=== PATIENT | female | born 1985 | race Caucasian/White ===

== ENCOUNTER 2019-04-18 13:01 | Observation (INO) | payer MEDICAID, OTHER, SELFPAY ==
[~2019-04-18] VITALS: Ht 167.6 cm; Wt 51.8 kg
[~2019-04-18 13:01] MED LIST: FOLI1TAB86 PO; LORA2TA PO; VITA100T2 PO; VITMTA PO; no meds
[2019-04-18] MEDS ORDERED: NS 1,000 ML IV ONE (14:45)
[2019-04-18] MEDS ORDERED: cloNIDine 0.1 MG TAB PO ONE (14:45)
[2019-04-18] MEDS ORDERED: ONDANSETRON 4MG/2ML VIAL (J2405) IV ONE (14:45)
[2019-04-18 14:47] LABS: BASO # 0.1 10^3/uL (0.0-0.2); BASO % 0.3 % (0.0-1.0); HEMATOCRIT 51.2 % (36.0-47.0); HEMOGLOBIN 17.4 g/dl (12.0-15.5); LYMPH # 2.6 10^3/uL (1.5-5.0); LYMPH % 14.2 % (24.0-44.0); MEAN CORPUSCULAR HEMOGLOBIN 30.1 pg (27.0-33.0); MEAN CORPUSCULAR VOLUME 88.4 fl (80.0-96.0); MONO # 0.8 10^3/uL (0.0-0.8); MONO % 4.3 % (0.0-5.0); NEUTROPHILS # 14.6 10^3/uL (1.5-8.5); NEUTROPHILS % 80.9 % (36.0-66.0); PLATELET COUNT, AUTOMATED 431 10^3/uL (150-450); RED BLOOD COUNT 5.79 10^6/uL (4.00-5.40)
[2019-04-18 15:14] LABS: BILIRUBIN,DIRECT 0.1 MG/DL (0.0-0.2); BILIRUBIN,TOTAL 0.5 MG/DL (0.2-1.0); CALCIUM LEVEL 11.8 MG/DL (8.5-10.1); CREATININE FOR GFR 2.22 MG/DL (0.55-1.30); GLOMERULAR FILTRATION RATE 27.4 (>60); POTASSIUM SERUM 4.5 MEQ/L (3.5-5.1); TOTAL PROTEIN 10.8 GM/DL (6.4-8.2)
[2019-04-18] MEDS ORDERED: LevoFLOXacin 500 MG TABLET PO ONE (17:00)
[2019-04-18] MEDS ORDERED: LORazepam 2 MG/ML VIAL (J2060) IV PRN (17:00)
--- NOTE | 2019-04-18 17:06 | HPEPDOC ---
General Date of Admission 04/18/19 Date of Service: Apr 18, 2019 Attending Physician: LATONYA JUAN MD Chief Complaint The patient is a 33-year-old female admitted with a reason for visit of Withdrawl. Source: Patient Exam Limitations: No limitations Timing/Duration: Day(s) Severity: Moderate (3 days) Associated Symptoms: Nausea, Vomiting History of Present Illness 33 years old white female with past medical history of no medical problems except dental problems. History of heroin IV drug abuse. Last time she shot heroin in her arm on Wednesday and tried to go through withdrawal on her own. Patient felt better yesterday but she still has persistent nausea, vomiting and unable to keep anything down. His decided to come to ED for further workup. Patient being admitted to medical floor with persistent nausea, vomiting, and acute renal failure secondary to dehydration Home Medications No Active Prescriptions or Reported Meds Allergies Coded Allergies: No Known Allergies (Verified Allergy, Unknown, 04/18/19) Past Medical History Medical History Dental problems or issues Surgical History None Family History Significant Family History: No pertinent family hx Social History * Smoker: current smoker Alcohol: Denies Drugs: heroin A-FIB/CHADSVASC A-FIB History Current/History of A-Fib/PAF?: No Review of Systems Constitutional: Denies: Chills, Fever, Malaise, Night Sweats, Weakness, Fatigue, Weight Loss, Lethargy, Other Eyes: Denies: Pain, Vision change, Conjunctivae inflammation, Eyelid inflammation, Redness, Other ENT: Reports: Sinus Congestion, Other Symptoms Skin: Denies: Rash, Lesions, Jaundice, Bruising, Itching, Dry, Breakdown, Nail Changes, Other Cardiovascular: Denies: Chest Pain, Palpitations, Orthopnea, Paroxysmal Noc. Dyspnea, Edema, Lt Headedness, Other Symptoms Gastrointestinal: Reports: Nausea, Vomiting; Denies: Abdominal Pain, Diarrhea, Constipation, Melena, Hematochezia, Other Symptoms Genitourinary: Denies: Dysuria, Frequency, Incontinence, Hematuria, Retention, Other Symptoms Hematologic: Denies: Bruising, Bleeding Excessively, Petecchia, Purpura, Enlarged Lymph Nodes, Other Hematologic Endocrine: Denies: Polydipsia, Polyphagia, Polyuria, Heat Intolerance, Cold Intolerance, Other Endocrine Sx Musculoskeletal: Denies: Neck Pain, Back Pain, Shoulder Pain, Arm Pain, Hand Pain, Leg Pain, Foot Pain, Joint Pain, Muscle Pain, Spasms, Other Symptoms Neurological: Denies: Weakness, Numbness, Incoordination, Change in speech, Confusion, Seizures, Other Symptoms Psych: Denies: Mood Normal, Anxiety, Depression, Memory Issues, Thoughts of Self Harm, Anger, Thoughts of Harming Other, Other Psych Physical Examination General Exam: Positive: Alert, Cooperative Eye Exam: Positive: PERRLA, Conjunctiva & lids normal ENT Exam: Positive: Atraumatic, Mucous membr. moist/pink Neck Exam: Positive: Supple Chest Exam: Positive: Clear to auscultation, Normal air movement Heart Exam: Positive: Rate Normal, Normal S1, Normal S2 Abdomen Exam: Positive: Normal bowel sounds Extremity Exam: Positive: Normal pulses Skin Exam: Positive: Nl turgor and temperature Neuro Exam: Positive: Strength at 5/5 X4 ext, Sensation Intact Psych Exam: Positive: Mental status NL, Memory Intact, Oriented x 3 Vital Signs Vital Signs Date Time Temp Pulse Resp B/P (MAP) Pulse Ox O2 Delivery O2 Flow Rate FiO2 04/18/19 15:16 72 100 04/18/19 15:00 131/96 (108) 04/18/19 13:01 98.0 20 Room Air Laboratory Data Labs 24H Laboratory Tests 2 04/18/19 14:28: Immature Granulocyte % (Auto) 0.3, White Blood Count 18.0H, Red Blood Count 5.79H, Hemoglobin 17.4H, Hematocrit 51.2H, Mean Corpuscular Volume 88.4, Mean Corpuscular Hemoglobin 30.1, Mean Corpuscular Hemoglobin Concent 34.0, Red Cell Distribution Width 13.3, Platelet Count 431, Neutrophils (%) (Auto) 80.9H, Lymphocytes (%) (Auto) 14.2L, Monocytes (%) (Auto) 4.3, Eosinophils (%) (Auto) 0.0, Basophils (%) (Auto) 0.3, Neutrophils # (Auto) 14.6H, Lymphocytes # (Auto) 2.6, Monocytes # (Auto) 0.8, Eosinophils # (Auto) 0.0, Basophils # (Auto) 0.1, Nucleated Red Blood Cells % (auto) 0.0, Anion Gap 14, Glomerular Filtration Rate 27.4L, Calcium Level 11.8H, Aspartate Amino Transf (AST/SGOT) 36, Alanine Aminotransferase (ALT/SGPT) 52, Alkaline Phosphatase 116, Total Bilirubin 0.5, Direct Bilirubin 0.1, Total Protein 10.8H, Albumin 5.0, Albumin/Globulin Ratio 0.86L CBC/BMP Laboratory Tests 04/18/19 14:28 Red Blood Count 5.79 H, Mean Corpuscular Volume 88.4, Mean Corpuscular Hemoglobin 30.1, Mean Corpuscular Hemoglobin Concent 34.0, Red Cell Distribution Width 13.3, Neutrophils (%) (Auto) 80.9 H, Lymphocytes (%) (Auto) 14.2 L, Monocytes (%) (Auto) 4.3, Eosinophils (%) (Auto) 0.0, Basophils (%) (Auto) 0.3, Neutrophils # (Auto) 14.6 H, Lymphocytes # (Auto) 2.6, Monocytes # (Auto) 0.8, Eosinophils # (Auto) 0.0, Basophils # (Auto) 0.1 Problems (1) Dehydration Status: Acute Problem Text: 33 years old white female with no past medical history is a history of heroin abuse. She is been sober for a year and have been recently 2 months ago she restarted again. Her last IV injection of heroin was Wednesday about 3 days ago. Nightly through the withdrawal at home and she felt better yesterday but she is still complaining of persistent nausea, vomiting, unable to keep anything down. She does have some nasal congestion but no tremors or anxiety at this point Discussed with Dr. from psychiatry. Just symptomatic treatment recommended IV fluid normal saline at 100 mL per hour Ativan 1 mg by mouth every exam or when necessary for anxiety Zofran 4 mg IV every 4 hours when necessary for nausea, vomiting Oral hydration and oral intake as tolerated A.m. laboratory work Bilateral SCDs for DVT prophylaxis Activity as tolerated (2) Acute renal failure Status: Acute Problem Text: Secondary to dehydration and poor oral intake Repeat labs in a.m. Continue IV fluids normal saline at 100 mL per hour (3) Nausea & vomiting Status: Acute Problem Text: Secondary to opiate withdrawal Zofran 4 mg IV every 4-6 hour when necessary for nausea, vomiting Symptomatic care (4) Heroin withdrawal Status: Acute Problem Text: As above Plan / VTE VTE Prophylaxis Ordered?: Yes LATONYA JUAN MD Apr 18, 2019 17:06
[2019-04-18] MEDS: NS 1,000 ML IV SCH (17:08)
[2019-04-18] MEDS ORDERED: cefTRIAXone SOD 1 GM in D5W MINI-BAG PLUS 50 ML IV ONE (17:15)
--- NOTE | 2019-04-18 17:19 | REP ---
Portable chest, single AP view, the patient upright, 05:02 p.m.: There are no comparisons. The lung rubio are clear. The cardiac size is normal. The laya, mediastinum, and skeletal structures are unremarkable. Impression: Negative portable chest. Electronically Signed by Oswald No MD 04/18/2019 05:11 P
[2019-04-18 18:18] VITALS: BP 106/78
[2019-04-18 22:00] VITALS: BP 121/87
[2019-04-18] MEDS: ONDANSETRON 4MG/2ML VIAL (J2405) IV PRN (23:22)
[2019-04-19] MEDS ORDERED: LORazepam 2 MG/ML VIAL (J2060) IV ONE (00:45)
[2019-04-19 06:00] VITALS: BP 122/88
[2019-04-19] MEDS: NS 1,000 ML IV SCH ×3 (06:11→20:43)
[2019-04-19 06:27] LABS: HEMATOCRIT 40.8 % (36.0-47.0); MEAN CORPUSCULAR HEMOGLOBIN 30.2 pg (27.0-33.0); MEAN CORPUSCULAR HGB CONC 34.1 g/dl (32.0-36.5); MEAN CORPUSCULAR VOLUME 88.7 fl (80.0-96.0)
[2019-04-19 06:32] LABS: HEMOGLOBIN 13.9 g/dl (12.0-15.5); PLATELET COUNT, AUTOMATED 311 10^3/uL (150-450)
[2019-04-19 06:48] LABS: ALBUMIN 3.6 GM/DL (3.2-5.2); ALT/SGPT 49 U/L (12-78); BILIRUBIN,TOTAL 0.7 MG/DL (0.2-1.0); BLOOD UREA NITROGEN 28 MG/DL (7-18); CALCIUM LEVEL 9.1 MG/DL (8.5-10.1); CARBON DIOXIDE LEVEL 26 MEQ/L (21-32); CHLORIDE LEVEL 105 MEQ/L (98-107); GLOMERULAR FILTRATION RATE > 60.0 (>60); GLUCOSE, FASTING 100 MG/DL (70-100); POTASSIUM SERUM 3.6 MEQ/L (3.5-5.1); SODIUM LEVEL 139 MEQ/L (136-145); TOTAL PROTEIN 8.1 GM/DL (6.4-8.2)
[2019-04-19] MEDS ORDERED: LORazepam 2 MG/ML VIAL (J2060) IV PRN (07:45)
--- NOTE | 2019-04-19 11:12 | IPNPDOC ---
Subjective Date Seen The patient was seen on 04/19/19. Subjective Chief Complaint/HPI Patient is sleeping very comfortably, easily arousable with tactile stimuli, but goes back to sleep, no chills, shivering nasal congestion tremors General: Denies: ROS Unobtainable, Chills, Night Sweats, Fatigue, Malaise, N ormal Appetite, Other Symptoms Constitutional: Denies: Chills, Fever, Malaise, Night Sweats, Weakness, Fatigue, Weight Loss, Lethargy, Other Pulmonary: Denies: Dyspnea, Cough, Pleuritic Chest Pain, Other Symptoms Cardiovascular: Denies: Chest Pain, Palpitations, Orthopnea, Paroxysmal Noc. Dyspnea, Edema, Lt Headedness, Other Symptoms Gastrointestinal: Denies: Nausea, Vomiting, Abdominal Pain, Diarrhea, Consti pation, Melena, Hematochezia, Other Symptoms Genitourinary: Denies: Dysuria, Frequency, Incontinence, Hematuria, Retention, Other Symptoms Musculoskeletal: Denies: Neck Pain, Back Pain, Shoulder Pain, Arm Pain, Hand Pain, Leg Pain, Foot Pain, Joint Pain, Muscle Pain, Spasms, Other Symptoms Neurological: Denies: Weakness, Numbness, Incoordination, Change in speech, Confusion, Seizures, Other Symptoms Objective Physical Examination Neck Exam: Positive: Supple Chest Exam: Positive: Clear to auscultation, Normal air movement Heart Exam: Positive: Rate Normal, Normal S1, Normal S2 Abdomen Exam: Positive: Normal bowel sounds Extremity Exam: Positive: Normal pulses Skin Exam: Positive: Nl turgor and temperature Assessment /Plan Problems (1) Heroin withdrawal Status: Acute Problem Text: Patient seems very comfortable with anxiolytics and current management Once the patient is awake from her sleep. She'll be provided with regular diet If she tolerates diet, she possibly will be discharged home today Her opioid withdrawal symptoms have subsided clearly, as per clinical exam Patient did get a referral from [facility] regarding follow-up as an outpatient (2) Acute renal failure Status: Acute Problem Text: Acute kidney injury has resolved with IV fluids Her BUN is 28, creatinine is 1.0 Continue all current meds (3) Protein calorie malnutrition Status: Chronic Problem Text: Most likely secondary to IV drug abuse and poor oral intake Dietary counseling done Will get a dietary consult as well Plan/VTE VTE Prophylaxis Ordered?: Yes VS, I&O, 24H, Fishbone Vital Signs/I&O Vital Signs Date Time Temp Pulse Resp B/P (MAP) Pulse Ox O2 Delivery O2 Flow Rate FiO2 04/19/19 06:00 98.7 87 16 122/88 (99) 97 04/18/19 13:01 Room Air I&O- Last 24 Hours up to 6 AM 04/19/19 06:00 Intake Total 2420 ml Output Total 1000 ml Balance 1420 ml Laboratory Data 24H LABS Laboratory Tests 2 04/18/19 14:28: Immature Granulocyte % (Auto) 0.3, White Blood Count 18.0H, Red Blood Count 5.79H, Hemoglobin 17.4H, Hematocrit 51.2H, Mean Corpuscular Volume 88.4, Mean Corpuscular Hemoglobin 30.1, Mean Corpuscular Hemoglobin Concent 34.0, Red Cell Distribution Width 13.3, Platelet Count 431, Neutrophils (%) (Auto) 80.9H, Lymphocytes (%) (Auto) 14.2L, Monocytes (%) (Auto) 4.3, Eosinophils (%) (Auto) 0.0, Basophils (%) (Auto) 0.3, Neutrophils # (Auto) 14.6H, Lymphocytes # (Auto) 2.6, Monocytes # (Auto) 0.8, Eosinophils # (Auto) 0.0, Basophils # (Auto) 0.1, Nucleated Red Blood Cells % (auto) 0.0, Anion Gap 14, Glomerular Filtration Rate 27.4L, Calcium Level 11.8H, Aspartate Amino Transf (AST/SGOT) 36, Alanine Aminotransferase (ALT/SGPT) 52, Alkaline Phosphatase 116, Total Bilirubin 0.5, Direct Bilirubin 0.1, Total Protein 10.8H, Albumin 5.0, Albumin/Globulin Ratio 0.86L 04/19/19 05:42: Nucleated Red Blood Cells % (auto) 0.0, Anion Gap 8, Glomerular Filtration Rate > 60.0, Calcium Level 9.1#, Aspartate Amino Transf (AST/SGOT) 41H, Alanine Aminotransferase (ALT/SGPT) 49, Alkaline Phosphatase 78, Total Bilirubin 0.7, Total Protein 8.1#, Albumin 3.6#, Albumin/Globulin Ratio 0.80L, Blood Urea Nitrogen 28H, Creatinine 1.00#, Sodium Level 139, Potassium Level 3.6, Chloride Level 105, Carbon Dioxide Level 26, Magnesium Level 2.0 CBC/BMP Laboratory Tests 04/18/19 14:28 Red Blood Count 5.79 H, Mean Corpuscular Volume 88.4, Mean Corpuscular Hemoglobin 30.1, Mean Corpuscular Hemoglobin Concent 34.0, Red Cell Distribution Width 13.3, Neutrophils (%) (Auto) 80.9 H, Lymphocytes (%) (Auto) 14.2 L, Monocytes (%) (Auto) 4.3, Eosinophils (%) (Auto) 0.0, Basophils (%) (Auto) 0.3, Neutrophils # (Auto) 14.6 H, Lymphocytes # (Auto) 2.6, Monocytes # (Auto) 0.8, Eosinophils # (Auto) 0.0, Basophils # (Auto) 0.1 04/19/19 05:42 Red Blood Count 4.60, Mean Corpuscular Volume 88.7, Mean Corpuscular Hemoglobin 30.2, Mean Corpuscular Hemoglobin Concent 34.1, Red Cell Distribution Width 13.0, Calcium Level 9.1 #, Aspartate Amino Transf (AST/SGOT) 41 H, Alanine Aminotransferase (ALT/SGPT) 49, Alkaline Phosphatase 78, Total Bilirubin 0.7, Total Protein 8.1 #, Albumin 3.6 # LATONYA JUAN MD Apr 19, 2019 11:12
[2019-04-19] MEDS: LORazepam 1 MG TAB PO PRN ×3 (13:25→22:09)
[2019-04-19 14:00] VITALS: BP 124/68
[2019-04-19 15:48] LABS: APPEARANCE, URINE CLEAR (CLEAR); BACTERIA, URINE AUTO NEGATIVE (NEGATIVE); BILIRUBIN, URINE AUTO NEGATIVE (NEGATIVE); BLOOD, URINE BLOOD NEGATIVE (NEGATIVE); COLOR, URINE YELLOW (YELLOW); GLUCOSE, URINE (UA) AUTO NEGATIVE (NEGATIVE); KETONE, URINE AUTO NEGATIVE (NEGATIVE); LEUKOCYTE ESTERASE, URINE AUTO TRACE (NEGATIVE); NITRITE, URINE AUTO NEGATIVE (NEGATIVE); PROTEIN, URINE AUTO NEGATIVE (NEGATIVE); RBC, URINE AUTO 1 /HPF (0-3); SPECIFIC GRAVITY URINE AUTO 1.011 (1.002-1.035); SQUAMOUS EPITHELIAL CELL UR AU 1 /HPF (0-6); UROBILINOGEN, URINE AUTO 0.2 mg/dL (0.0-2.0); WBC, URINE AUTO 2 /HPF (0-3)
[2019-04-19] MEDS: ONDANSETRON 4MG/2ML VIAL (J2405) IV PRN ×2 (16:14→20:40)
[2019-04-19] MEDS ORDERED: cefTRIAXone SOD 1 GM in D5W MINI-BAG PLUS 50 ML IV SCH (18:00)
[2019-04-19 22:00] VITALS: BP 124/79
[2019-04-20] MEDS: ONDANSETRON 4MG/2ML VIAL (J2405) IV PRN ×2 (01:02→06:00)
[2019-04-20] MEDS: LORazepam 1 MG TAB PO PRN ×2 (02:52→08:37)
[2019-04-20 06:00] VITALS: BP 126/88
[2019-04-20] MEDS: NS 1,000 ML IV SCH (06:42)
--- NOTE | 2019-04-20 12:11 | DS.PDOC ---
Discharge Summary General Date of Admission Apr 18, 2019 at 13:02 Date of Discharge 04/20/19 Attending Physician: LATONYA JUAN MD Discharge Summary PROCEDURES PERFORMED DURING STAY: None. ADMITTING DIAGNOSES: 1. Intractable nausea, vomiting Opiate withdrawal. UTI, history of IV drug abuse, DOROTEO. DISCHARGE DIAGNOSES: 1. [Intractable nausea, vomiting secondary to Opiate withdrawal, UTI, history of IV drug abuse, protein malnutrition secondary to drug abuse, DOROTEO COMPLICATIONS/CHIEF COMPLAINT: Heroin Withdrawal Nausea Vomiting. HISTORY OF PRESENT ILLNESS: 33 years old white female with past medical history of no medical problems except dental problems. History of heroin IV drug abuse. Last time she shot heroin in her arm on Wednesday and tried to go through withdrawal on her own. Patient felt better yesterday but she still has persistent nausea, vomiting and unable to keep anything down. His decided to come to ED for further workup. Patient being admitted to medical floor with persistent nausea, vomiting, and acute renal failure secondary to dehydration. HOSPITAL COURSE: Patient was admitted with the intractable nausea, vomiting secondary to opiate withdrawal. Patient seems very comfortable with anxiolytics and current management . She was provided with IV fluids and diet was progressed , She tolerated her diet. Today she possibly will be discharged home today Patient's opiate withdrawal symptoms have resolved She will follow up with [facility] regarding her outpatient follow-up for drug addiction Acute kidney injury has resolved with IV fluids Her BUN is 28, creatinine is 1.0 Continue all current meds Protein malnutrition Most likely secondary to IV drug abuse and poor oral intake Dietary counseling done Will get a dietary consult as wel. DISCHARGE MEDICATIONS: Please see below. ALLERGIES: Please see below. PHYSICAL EXAMINATION ON DISCHARGE: VITAL SIGNS: Please see below. GENERAL: Within normal limits HEENT: PERRLA NECK: Supple CARDIOVASCULAR EXAMINATION: S1, S2, regular RESPIRATORY EXAMINATION: Clear to A&P ABDOMINAL EXAMINATION: Benign EXTREMITIES: No clubbing, cyanosis, edema SKIN: Normal NEUROLOGICAL EXAMINATION: . No focal motor sensory deficit PSYCHIATRIC EXAMINATION: Normal LABORATORY DATA: Please see below. IMAGING: None PROGNOSIS: Good ACTIVITY: As tolerated. DIET: As tolerated DISCHARGE PLAN: MS home DISPOSITION: 01 Home, Self-Care. DISCHARGE INSTRUCTIONS: 1. Patient will follow with up with behavioral health provider for further care as an outpatient. ITEMS TO FOLLOWUP ON ON OUTPATIENT: 1. Follow with Health provider as outpatient. DISCHARGE CONDITION: Stable. TIME SPENT ON DISCHARGE: 28 minutes. Vital Signs/I&Os Vital Signs Date Time Temp Pulse Resp B/P (MAP) Pulse Ox O2 Delivery O2 Flow Rate FiO2 04/20/19 06:00 97.9 71 17 126/88 (101) 98 04/18/19 13:01 Room Air I&O- Last 24 Hours up to 6 AM 04/20/19 06:00 Intake Total 3566 ml Output Total 1100 ml Balance 2466 ml Laboratory Data Labs 24H Laboratory Tests 2 04/19/19 15:30: Urine Appearance CLEAR, Urine Color YELLOW, Urine pH 7.0, Urine Specific [place] 1.011, Urine Protein NEGATIVE, Urine Glucose (UA) NEGATIVE, Urine Ketones NEGATIVE, Urine Urobilinogen 0.2, Urine Bilirubin NEGATIVE, Urine Leukocyte Esterase TRACEH, Urine Blood NEGATIVE, Urine Nitrite NEGATIVE, Urine WBC (Auto) 2, Urine RBC (Auto) 1, Urine Hyaline Casts (Auto) 0, Urine Bacteria (Auto) NEGATIVE, Urine Squamous Epithelial Cells 1, Urine Sperm (Auto) Discharge Medications No Active Prescriptions or Reported Meds Allergies Coded Allergies: No Known Allergies (Verified Allergy, Unknown, 04/18/19) LATONYA JUAN MD Apr 20, 2019 12:11
== END 2019-04-20 11:06 | disposition home or self-care (01) ==
LOC: M ED 13:01 → M ED INP 13:02 → M MSPAV 18:18
PROVIDERS: ADMIT Internal Medicine; ATTEND Internal Medicine
DX: F11.93 Opioid use, unspecified with withdrawal (principal); R11.2 Nausea with vomiting, unspecified; N17.9 Acute kidney failure, unspecified; E86.0 Dehydration; F17.210 Nicotine dependence, cigarettes, uncomplicated
CPT/HCPCS: 36415; 71045; 80048; 80053; 80076; 81001; 83735; 85025; 85027; 96361; 96374; 96375; 96376; 99284; J0696; J2060; J2405

== ENCOUNTER → 2019-04-24 | Outpatient (CLI) | payer MEDICAID | LOC: M OUTALCOH 12:48 | PROVIDERS: ATTEND Psychiatry & Neurology Psychiatry | DX: F11.20 Opioid dependence, uncomplicated (principal) ==

== ENCOUNTER 2019-06-12 08:45 | Outpatient (RCR) | payer MEDICAID | END 2019-06-17 | LOC: M OUTALCOH 08:45 | PROVIDERS: ATTEND Psychiatry & Neurology Psychiatry | DX: F11.20 Opioid dependence, uncomplicated (principal); F10.20 Alcohol dependence, uncomplicated; F14.20 Cocaine dependence, uncomplicated; F15.20 Other stimulant dependence, uncomplicated ==

== ENCOUNTER 2019-07-03 09:43 | Inpatient (IN) | payer MEDICAID, OTHER ==
[~2019-07-03] VITALS: Ht 167.6 cm; Wt 53.8 kg
[2019-07-03] MEDS ORDERED: SUBO8MIS SL (10:03)
[2019-07-03 10:30] LABS: HEMOGLOBIN 14.5 g/dl (12.0-15.5); MEAN CORPUSCULAR HEMOGLOBIN 29.5 pg (27.0-33.0); MEAN CORPUSCULAR VOLUME 89.4 fl (80.0-96.0); PLATELET COUNT, AUTOMATED 226 10^3/uL (150-450); RED BLOOD COUNT 4.92 10^6/uL (4.00-5.40)
[2019-07-03 10:49] LABS: AMPHETAMINES LEVEL URINE NEGATIVE (NEGATIVE); BARBITURATES URINE NEGATIVE (NEGATIVE); BENZODIAZEPINES URINE NEGATIVE (NEGATIVE); CANNABINOIDS URINE NEGATIVE (NEGATIVE); COCAINE METABOLITE URINE NEGATIVE (NEGATIVE); METHADONE URINE NEGATIVE (NEGATIVE); OPIATES URINE NEGATIVE (NEGATIVE); PHENCYCLIDINE URINE NEGATIVE (NEGATIVE)
[2019-07-03 10:59] LABS: HCG, SERUM QUALITATIVE NEGATIVE (NEGATIVE)
[2019-07-03 11:21] LABS: ACETAMINOPHEN LEVEL < 2.0 UG/ML (10.0-30.0); ALBUMIN 4.6 GM/DL (3.2-5.2); ALT/SGPT 46 U/L (12-78); BILIRUBIN,DIRECT 0.1 MG/DL (0.0-0.2); BILIRUBIN,TOTAL 0.7 MG/DL (0.2-1.0); BLOOD UREA NITROGEN 13 MG/DL (7-18); CALCIUM LEVEL 9.7 MG/DL (8.5-10.1); CARBON DIOXIDE LEVEL 23 MEQ/L (21-32); CHLORIDE LEVEL 108 MEQ/L (98-107); CREATININE FOR GFR 0.76 MG/DL (0.55-1.30); ETHYL ALCOHOL (ETHANOL) < 0.003 % (0.000-0.010); GLOMERULAR FILTRATION RATE > 60.0 (>60); GLUCOSE, FASTING 94 MG/DL (70-100); POTASSIUM SERUM 4.2 MEQ/L (3.5-5.1); SALICYLATE LEVEL 4.8 MG/DL (5.0-30.0); SODIUM LEVEL 140 MEQ/L (136-145); TOTAL PROTEIN 8.7 GM/DL (6.4-8.2)
--- NOTE | 2019-07-03 13:11 | REP ---
Head CT without contrast: History: Altered mental status Comparison study: No comparison study. CT findings: Bone window settings demonstrate an intact bony calvarium. There is no evidence of skull fracture or incidental bony calvarial lesion. The visualized paranasal sinuses appear clear. No intraorbital abnormality is seen. On soft tissue window setting images; the lateral, third, and fourth ventricles are normal in size and position. Haywood-white differentiation pattern is normal above and below the tentorium. There are is no evidence of intracranial hemorrhage. No mass, edema, infarction, or midline shift is seen. No extra-axial fluid collection is appreciated. Impression: Negative noncontrast head CT. Electronically Signed by Gage Jones MD 07/03/2019 01:04 P
[2019-07-03] MEDS ORDERED: OLANZapine ORAL DISINTEGRATING TAB 5MG PO PRN (14:30)
[2019-07-03 23:01] VITALS: BP 130/85
[2019-07-03] MEDS: ACETAMINOPHEN TAB 650MG DOSE (2X325MG) PO PRN (23:29)
[2019-07-03] MEDS ORDERED: MAALOX 30 ML SUSP *UDC PO PRN (23:30)
[2019-07-03] MEDS ORDERED: traZODone 50 MG TAB PO PRN (23:30)
[2019-07-03] MEDS ORDERED: MOM 30ML SUSPENSION UDC PO PRN (23:30)
[2019-07-04 06:32] VITALS: BP 112/62
--- NOTE | 2019-07-04 11:10 | MHHPEPDOC ---
[facility] History & Physical History and Physical DATE OF ADMISSION: Jul 03, 2019 at 14:29 New Patient Khang Hadley MRN: N/A Date of : N/A Date of Service: 07/04/2019 Chief Complaint "I don't know what happened." History of Present Illness The patient a 33-year-old woman who has a significant history of addiction, treated by myself in the outpatient addiction treatment system present psychotic after reportedly during substances, she has recently had a relapse on methamphetamine and had presented fairly psychotic, unable to demonstrate any reason or ability to understand her current situation. When I attempted to meet with the patient, she was so heavily sedated, tired and unable to make much sense regarding the situation, only asking for her buprenorphine. Other than that, she was unable to relate any effective information. The psychosocial below is extracted from previous assessments and update as appropriate. Review Of Systems Unable to provide information due to her sedation, lethargy and psychosis. Past Psychiatric History Denies a history of suicide attempts. Allergies Please see below. Family Psychiatric History Per records. Social History The patient is a woman who self identifies as lesbian, currently homeless. No significant legal problems noted, has no current income, has a GED, has been arrested in the past for criminal contempt, reportedly grew up with parents , previously has denied any abuse. Substance Abuse History Has a history of opioid use on buprenorphine. Recent relapse on methamphetamine, history of cannabis use and polysubstance issues. Medical History Per chart. Mental Status Examination General: Poor hygiene Speech: Circumstantial Thought processes: Tangential MSK: Smooth and coordinated gait, no signs of tremors or involuntary orofacial movements Thought content: Bizarre Abstract reasoning, and computation: Impaired Description of associations: Impaired Description of abnormal or psychotic thoughts: Appears to be heavily sedated, unclear if any abnormal thought process. Judgment: Impaired Insight: Impaired Orientation: Alert and orientated 3 Cognition: Grossly normal Recent and remote memory: Intact Attention span and concentration: Intact Fund of knowledge: Adequate Mood: "fine" Affect: Flat with little range Diagnoses Unspecified psychotic disorder. Opioid use disorder, severe. Methamphetamine use disorder, severe. Tobacco use disorder, severe. Assessment and Plan Unspecified psychotic disorder: Suspect substance use, will observe to determine if underlying psychotic disorder versus substance. U-tox negative; however, pat eleanor has history of synthetic use. Opioid use disorder: Will restart buprenorphine for now. Tobacco use disorder: Offer nicotine patch. Disposition The patient will need admission likely lasting longer than 2 minutes in order to treat her psychosis. Problem List 1. Altered thoughts. 2. Substance use. Initial Treatment Plan 1. Patient was admitted on a 9.39 legal status. 2. Complete history was obtained. 3. With patients permission, family will be contacted and database will be expanded. 4. Patients medication regimen will be reviewed and changed accordingly. 5. Patient will be provided with protected environment. 6. Patient will be treated with individual, group, and milieu therapies. 7. Patient will receive supportive psych-education. 8. Discharge planning will commence immediately. 9. Outpatient follow-up treatment will be strongly recommended. 10. The initial treatment plan will focus initially on: Estimated Length Of Stay 3 days. Time Spent 70 minutes. Wednesday Vital Signs Vital Signs Date Time Temp Pulse Resp B/P (MAP) Pulse Ox O2 Delivery O2 Flow Rate FiO2 07/04/19 10:28 Room Air 07/04/19 06:32 98.1 69 16 112/62 (79) 07/03/19 23:01 98 Medications Scheduled Buprenorphine HCl/Naloxone HCl (Suboxone 8 mg-2 mg Sl Film) 1 Each Film, 1 STRIP SL DAILY, (Reported) Allergies Coded Allergies: No Known Allergies (Verified Allergy, Unknown, 04/18/19) MARIAMA SUMMERS DO Jul 04, 2019 11:10
--- NOTE | 2019-07-04 11:16 | HPEPDOC ---
General Date of Admission Jul 03, 2019 at 14:29 Date of Service: Jul 04, 2019 Attending Physician: CHANA SEVILLA MD Chief Complaint The patient is a 33-year-old female admitted with a reason for visit of Psychosis. Source: Patient, RN/MD, EMS notes reviewed Exam Limitations: No limitations Associated Symptoms: Denies Symptoms History of Present Illness Ms. Hadley is a 33 year old female admitted to the [facility] with a diagnosis of Psychosis. Pt is being assessed by the hospitalist group for any medical comorbidities she may have. She is seen in the schuler exam room today with nursing escort. When asked, pt stated she doesn't know why she is here, she is tired. Pt denied any current medical issues except she has 'pain all over' and has been experiencing these Sx for ~ 1 month. Pain is described as aching in all the joints; no precipitating trauma or event. Tylenol or Ibuprofen OTC resolve the pain. She has recently established PCP with [facility]. Home Medications Scheduled Buprenorphine HCl/Naloxone HCl (Suboxone 8 mg-2 mg Sl Film) 1 Each Film, 1 STRIP SL DAILY, (Reported) Allergies Coded Allergies: No Known Allergies (Verified Allergy, Unknown, 04/18/19) Past Medical History Medical History ARF Heroin withdrawal Surgical History Denied Family History Significant Family History: Diabetes ( father ) Social History * Smoker: Denies Alcohol: heavy (1-2 times per week; >10 beers each occasion ) Drugs: heroin (has been clean for 8 months. ), prescription drugs (Suboxone 8mg since April ) Recent Travel/Sick Contacts: Denies: Recent travel, Recent sick contacts A-FIB/[facility] A-FIB History Current/History of A-Fib/PAF?: No Current PO Anticoag Therapy: No Review of Systems Constitutional: Denies: Chills, Fever, Night Sweats Eyes: Denies: Pain, Vision change ENT: Denies: Head Aches Skin: Denies: Rash, Lesions, Breakdown Pulmonary: Denies: Dyspnea, Cough Cardiovascular: Reports: Paroxysmal Noc. Dyspnea; Denies: Chest Pain, Palpitations, Lt Headedness Gastrointestinal: Denies: Nausea, Vomiting, Abdominal Pain, Diarrhea Genitourinary: Denies: Dysuria, Frequency, Retention Hematologic: Denies: Bruising Musculoskeletal: Reports: Joint Pain (generalized joint pain (see HPI)) Neurological: Denies: Weakness Psych: Reports: Mood Normal; Denies: Thoughts of Self Harm, Thoughts of Harming Other Physical Examination General Exam: Positive: Alert, No Acute Distress Eye Exam: Positive: PERRLA, Conjunctiva & lids normal, EOMI; Negative: Sclera icteric ENT Exam: Positive: Atraumatic, Mucous membr. moist/pink, Pharynx Normal Neck Exam: Positive: Supple; Negative: thyromegaly Chest Exam: Positive: Clear to auscultation, Normal air movement Heart Exam: Positive: Rate Normal, Regular Rhythm, Normal S1, Normal S2; Negative: Murmurs, Rubs Abdomen Exam: Positive: Normal bowel sounds, Soft; Negative: Tenderness Extremity Exam: Positive: Normal pulses; Negative: Clubbing, Cyanosis, Edema Skin Exam: Positive: Nl turgor and temperature; Negative: Lesion Neuro Exam: Positive: Normal Gait, Normal Speech, Cranial Nerves 3-12 NL Psych Exam: Positive: Mental status NL, Mood NL, Oriented x 3 Vital Signs Vital Signs Date Time Temp Pulse Resp B/P (MAP) Pulse Ox O2 Delivery O2 Flow Rate FiO2 07/04/19 10:28 Room Air 07/04/19 06:32 98.1 69 16 112/62 (79) 07/03/19 23:01 98 Assessment/Plan Ms. Hadley is a 33 year old female admitted to the [facility] with a diagnosis of Psychosis. She has a PMHx which includes ARF and Heroin withdrawal. Of note, she is currently abusing alcohol. Ms Hadley noted generalized aches x1 month without any precipitating trauma or event. Otherwise, she has denied any medical issues at this time. Labs reviewed. Psychosis: Management per psychiatry Alcohol abuse Management per psychiatry Generalized body aches Tylenol/Ibuprofen prn F/U with PCP outpatient Medicine will sign off this time. Please re-consult if needed. Plan / VTE VTE Prophylaxis Ordered?: No SHIVA RAMSEY PA-C Jul 04, 2019 11:16
[2019-07-04] MEDS: BUPRENORPHINE/NALOXONE 8-2MG SUBLINGUAL TABLET(SUBOXONE) SL SCH (15:43)
[2019-07-04 15:59] VITALS: BP 105/66
[2019-07-04] MEDS: ACETAMINOPHEN TAB 650MG DOSE (2X325MG) PO PRN (18:05)
[2019-07-05 06:48] VITALS: BP 107/59
[2019-07-05] MEDS: BUPRENORPHINE/NALOXONE 8-2MG SUBLINGUAL TABLET(SUBOXONE) SL SCH (09:37)
[2019-07-05] MEDS: ACETAMINOPHEN TAB 650MG DOSE (2X325MG) PO PRN ×2 (09:44→17:54)
--- NOTE | 2019-07-05 12:03 | MHIPNPDOC ---
[facility] Progress Note Progress Note Inpatient Progress Note Khang Hadley MRN: N/A Date of : N/A Date of Service: 07/05/2019 History of Present Illness The patient a 33-year-old woman who has a significant history of addiction, treated by myself in the outpatient addiction treatment system present psychotic after reportedly during substances, she has recently had a relapse on methamphetamine and had presented fairly psychotic, unable to demonstrate any reason or ability to understand her current situation. When I attempted to meet with the patient, she was so heavily sedated, tired and unable to make much sense regarding the situation, only asking for her buprenorphine. Other than that, she was unable to relate any effective information. The psychosocial below is extracted from previous assessments and update as appropriate. Interval History The patient is met with today. She has become more lucid, less confused. She still has moments where she makes bizarre statements, but has notably made improvements. She has been focused on getting her buprenorphine and continues to deny any use prior, however, when confronted with information that she had stated she had used on her presentation she was unable to rectifying it giving a nervous laugh. The patient has had no major behavioral problems and has become more active on the unit, more social and talkative. Review Of Systems Denies any physical symptoms at this time. Psychotherapy None on this visit. Vital Signs Reviewed. Mental Status Examination General: Good hygiene Speech: Fluid Thought processes: Linear MSK: Smooth and coordinated gait, no signs of tremors or involuntary orofacial movements Thought content: Future orientated Abstract reasoning, and computation: Improved Description of associations: Improved Description of abnormal or psychotic thoughts: Denies any suicidal or homicidal ideations. Denies auditory or visual hallucinations. Does not appear to be responding to internal stimuli. Judgment: Improved Insight: Improved Orientation: Alert and orientated 3 Cognition: Grossly normal Recent and remote memory: Intact Attention span and concentration: Intact Fund of knowledge: Adequate Mood: "fine" Affect: More reactive and euthymic Diagnoses Unspecified psychotic disorder. Opioid use disorder, severe. Methamphetamine use disorder, severe. Tobacco use disorder, severe. Assessment and Plan Unspecified psychotic disorder: We'll allow to self resolve. Discussed with patient the possible need for neuroleptics if this is an unprovoked psychotic episode. Discussed the risks, benefits of treatment and non-treatment and the patient elected for non-treatment at this time, appears to be resolving without any significant intervention. Opioid use disorder: Will restart buprenorphine for now. Tobacco use disorder: Offer nicotine patch. Disposition Discharge tomorrow. Time Spent 15 minutes. Wednesday Vital Signs Vital Signs Date Time Temp Pulse Resp B/P (MAP) Pulse Ox O2 Delivery O2 Flow Rate FiO2 07/05/19 09:42 Room Air 07/05/19 06:48 98.9 82 18 107/59 (75) 07/03/19 23:01 98 Current Medications Current Medications Medications (Trade) Dose Ordered Sig/Balta Route PRN Reason Start Time Stop Time Status Last Admin Dose Admin Acetaminophen (Tylenol Tab) 650 mg Q6HP PRN PO HEADACHE or DISCOMFORT 07/03/19 23:30 07/05/19 09:44 Al Hydrox/Mg Hydrox/Simethicone (Mylanta) 30 ml Q4HP PRN PO HEARTBURN/INDIGESTION 07/03/19 23:30 Buprenorphine/ Naloxone (Suboxone 8/2mg) 1 tab DAILY SL 07/04/19 09:00 07/05/19 09:37 Home Med (Med Rec Complete!) ASDIRECTED XX 07/03/19 17:30 07/03/19 17:21 DC Magnesium Hydroxide (Milk Of Magnesia) 30 ml DAILYPRN PRN PO CONSTIPATION 07/03/19 23:30 Olanzapine (ZyPREXA ZYDIS) 5 mg Q4HP PRN PO AGITATION 07/03/19 14:30 07/03/19 23:29 Trazodone HCl (Desyrel) 50 mg QHSP PRN PO INSOMNIA 07/03/19 23:30 07/04/19 22:14 Allergies Coded Allergies: No Known Allergies (Verified Allergy, Unknown, 04/18/19) AMRIAMA SUMMERS DO Jul 05, 2019 12:03
[2019-07-05] MEDS ORDERED: NICOTINE 21MG/24HR 1 EA TRANSDERMAL TD PRN (12:45)
[2019-07-05 16:27] VITALS: BP 109/63
[2019-07-06 06:07] VITALS: BP 104/52
[2019-07-06] MEDS: BUPRENORPHINE/NALOXONE 8-2MG SUBLINGUAL TABLET(SUBOXONE) SL SCH (09:00)
[2019-07-06] MEDS ORDERED: NICO21PAT TD (10:16)
--- NOTE | 2019-07-06 10:22 | MHDSPDOC ---
[facility] Discharge Summary Discharge Summary DATE OF ADMISSION: Jul 03, 2019 at 14:29 DATE OF DISCHARGE: 07/06/19 Discharge Khang Hadley MRN: N/A Date of : N/A Date of Service: 07/06/2019 Diagnoses Unspecified psychotic disorder. Opioid use disorder, severe. Methamphetamine use disorder, severe. Tobacco use disorder, severe. History of Present Illness The patient a 33-year-old woman who has a significant history of addiction, treated by myself in the outpatient addiction treatment system present psychotic after reportedly during substances, she has recently had a relapse on methamph etamine and had presented fairly psychotic, unable to demonstrate any reason or ability to understand her current situation. When I attempted to meet with the patient, she was so heavily sedated, tired and unable to make much sense regarding the situation, only asking for her buprenorphine. Other than that, she was unable to relate any effective information. The psychosocial below is extracted from previous assessments and update as appropriate. Consultants Involved Hospitalist/PCP screening Treatment and Progress On The Unit The patient was admitted to the inpatient unit and subsequently noted to be psychotic. She resolved without any major interventions. She was restarted on her home buprenorphine. It was noted in the ER that she had been using prior to coming in, was brought in from [facility]. After conferring the patient about this, she continued to deny it despite her psychosis resolving without any interventions, highly consistent with a substance-induced psychosis. After several days of observation, she returned to her baseline state from my previous observations while treating her in the addiction clinic. She requested to leave and no longer met involuntary criteria as she was denying suicidal and homicidal ideation though the rest of her stay, had a normal mental status exam, cooperated with discharge and overall was pleasant without any significant behavioral problems and declined further voluntary admission. Discharge Assessment 33-year-old woman with a history of polysubstance use who presents after reportedly using Noelle or variety of methamphetamine, becoming psychotic, resolving without any interventions, highly consistent with a substance-induced psychosis. The patient was discussed with the nature of her treatment and whether if it was truly unprovoked, she would need to be on long-term neuroleptics, which she refused. She given her current state being nonpsychotic would not be eligible for treatment over objection as she was not posing any danger to herself or others. Mental Status Examination General: Well dressed with good hygiene Speech: Spontaneous and fluid Thought processes: Linear and logical MSK: Smooth and coordinated gait, no signs of tremors or involuntary orofacial movements Thought content: Future orientated Abstract reasoning, and computation: Intact Description of associations: Intact Description of abnormal or psychotic thoughts: Denies any suicidal or homicidal ideation. Denies any auditory or visual hallucinations. Does not appear to be responding to internal stimuli. Does not appear to be endorsing any bizarre or paranoid ideation. Judgment: fair Insight: fair Orientation: Alert and orientated 3 Cognition: Grossly normal Recent and remote memory: Intact Attention span and concentration: Intact Fund of knowledge: Adequate Mood: "okay" Affect: Euthymic with a full range Follow Up The social work team worked during the predischarge meeting in order to evaluate for further issues of lethality address them fully before discharge. They worked on safety planning with the patient's family members in order to ensure that the patient will have a safe and effective discharge. Time Spent The amount of time spent in the coordination of care for this patient was approximately 60 minutes. Vital Signs/I&Os Vital Signs Date Time Temp Pulse Resp B/P (MAP) Pulse Ox O2 Delivery O2 Flow Rate FiO2 07/06/19 06:07 98.0 70 18 104/52 (69) 07/05/19 09:42 Room Air 07/03/19 23:01 98 Medications Scheduled Buprenorphine HCl/Naloxone HCl (Suboxone 8 mg-2 mg Sl Film) 1 Each Film, 1 STRIP SL DAILY, (Reported) Scheduled PRN Hydroxyzine Pamoate (Hydroxyzine Pamoate) 100 Mg Capsule, 1 CAP PO TID PRN for ANXIETY for 5 Days, #15 Ondansetron (Ondansetron Odt) 4 Mg Tab.rapdis, 4 MG PO Q6-8HP PRN for nausea/vomiting for 4 Days, #8 Allergies Coded Allergies: No Known Allergies (Verified Allergy, Unknown, 04/18/19) MARIAMA SUMMERS DO Jul 06, 2019 10:22
== END 2019-07-06 13:30 | disposition home or self-care (01) | DRG 751 ==
LOC: M ED 09:43 → M ED INP 14:29 → M PSY 21:54
PROVIDERS: ADMIT Psychiatry & Neurology Addiction Medicine; ATTEND Psychiatry & Neurology Addiction Medicine
DX: F29 Unspecified psychosis not due to a substance or known physiological condition (principal); F10.10 Alcohol abuse, uncomplicated; F11.90 Opioid use, unspecified, uncomplicated; F17.200 Nicotine dependence, unspecified, uncomplicated

== ENCOUNTER 2019-07-07 08:45 | Outpatient (RCR) | payer MEDICAID ==
[~2019-07-07 08:45] MED LIST changes: +NICO21PAT TD; +SUBO8MIS SL
[2019-07-08] MEDS ORDERED: ONDA4TAB6 PO (01:14)
[2019-07-08] MEDS ORDERED: HYDR100C PO (01:14)
[2019-07-10] MEDS ORDERED: PATIENT COMMENTS (04:02)
[2019-07-10] MEDS ORDERED: ONDA4TAB6 PO (04:05)
[2019-07-10] MEDS ORDERED: HYDR100C PO (04:05)
[2019-07-14] MEDS ORDERED: NICOINH INH (08:50)
[2019-07-14] MEDS ORDERED: SUBO8MIS SL (08:50)
[2019-07-16] MEDS ORDERED: ZOFR4TAB16 PO (06:32)
[2019-07-16] MEDS ORDERED: HYDR100C PO (06:32)
[2019-07-17] MEDS ORDERED: HYDR100C PO (08:21)
[2019-07-17] MEDS ORDERED: NICOINH INH (08:21)
[2019-07-17] MEDS ORDERED: ONDA4TAB5 PO (08:21)
[2019-07-17] MEDS ORDERED: SUBO8MIS SL (08:21)
[2019-07-17] MEDS ORDERED: BACT800T5 PO (08:35)
[2019-07-17] MEDS ORDERED: VALA1TAB64 PO (08:35)
== END 2019-07-18 ==
LOC: M OUTALCOH 08:45
PROVIDERS: ATTEND Psychiatry & Neurology Psychiatry
DX: F11.20 Opioid dependence, uncomplicated (principal); F10.20 Alcohol dependence, uncomplicated; F14.20 Cocaine dependence, uncomplicated; F15.20 Other stimulant dependence, uncomplicated

== ENCOUNTER 2019-07-07 22:39 | Emergency (ER) | payer MEDICAID, OTHER ==
[~2019-07-07] VITALS: Ht 167.6 cm; Wt 54.5 kg
[2019-07-08] MEDS ORDERED: ONDA4TAB6 PO (01:14)
[2019-07-08] MEDS ORDERED: HYDR100C PO (01:14)
[2019-07-08] MEDS ORDERED: hydrOXYzine 25 MG TAB PO ONE (01:15)
[2019-07-08] MEDS: ONDANSETRON 4 MG ORAL DISINTEGRATING TAB (Q0162 PER 1MG) PO ONE ×2 (01:18→01:20)
[2019-07-08 01:25] VITALS: BP 149/88
== END 2019-07-08 01:27 | disposition home or self-care (01) ==
LOC: M ED 22:39
DX: F41.1 Generalized anxiety disorder (principal); F11.10 Opioid abuse, uncomplicated; F33.9 Major depressive disorder, recurrent, unspecified; F17.210 Nicotine dependence, cigarettes, uncomplicated

== ENCOUNTER 2019-07-09 22:35 | Inpatient (IN) | payer MEDICAID, OTHER ==
[~2019-07-09] VITALS: Ht 167.6 cm; Wt 53.8 kg
[~2019-07-09 22:35] MED LIST changes: +HYDR100C PO; +ONDA4TAB6 PO
[2019-07-10 00:04] LABS: HCG, SERUM QUALITATIVE NEGATIVE (NEGATIVE)
[2019-07-10 00:11] LABS: HEMATOCRIT 44.1 % (36.0-47.0); HEMOGLOBIN 14.6 g/dl (12.0-15.5); MEAN CORPUSCULAR HEMOGLOBIN 29.9 pg (27.0-33.0); MEAN CORPUSCULAR HGB CONC 33.1 g/dl (32.0-36.5); MEAN CORPUSCULAR VOLUME 90.2 fl (80.0-96.0); PLATELET COUNT, AUTOMATED 277 10^3/uL (150-450); RED BLOOD COUNT 4.89 10^6/uL (4.00-5.40)
[2019-07-10 00:27] LABS: ACETAMINOPHEN LEVEL < 2.0 UG/ML (10.0-30.0); ALBUMIN 4.6 GM/DL (3.2-5.2); ALT/SGPT 40 U/L (12-78); BILIRUBIN,DIRECT 0.1 MG/DL (0.0-0.2); BILIRUBIN,TOTAL 0.6 MG/DL (0.2-1.0); BLOOD UREA NITROGEN 9 MG/DL (7-18); CALCIUM LEVEL 9.7 MG/DL (8.5-10.1); CARBON DIOXIDE LEVEL 24 MEQ/L (21-32); CHLORIDE LEVEL 108 MEQ/L (98-107); ETHYL ALCOHOL (ETHANOL) < 0.003 % (0.000-0.010); GLOMERULAR FILTRATION RATE > 60.0 (>60); GLUCOSE, FASTING 78 MG/DL (70-100); POTASSIUM SERUM 4.6 MEQ/L (3.5-5.1); SALICYLATE LEVEL 5.2 MG/DL (5.0-30.0); SODIUM LEVEL 139 MEQ/L (136-145); TOTAL PROTEIN 8.9 GM/DL (6.4-8.2)
[2019-07-10 02:39] LABS: AMPHETAMINES LEVEL URINE NEGATIVE (NEGATIVE); BARBITURATES URINE NEGATIVE (NEGATIVE); BENZODIAZEPINES URINE NEGATIVE (NEGATIVE); CANNABINOIDS URINE NEGATIVE (NEGATIVE); COCAINE METABOLITE URINE NEGATIVE (NEGATIVE); METHADONE URINE NEGATIVE (NEGATIVE); OPIATES URINE NEGATIVE (NEGATIVE); PHENCYCLIDINE URINE NEGATIVE (NEGATIVE)
[2019-07-10] MEDS ORDERED: traZODone 50 MG TAB PO PRN (03:45)
[2019-07-10] MEDS ORDERED: MOM 30ML SUSPENSION UDC PO PRN (03:45)
[2019-07-10] MEDS ORDERED: MAALOX 30 ML SUSP *UDC PO PRN (03:45)
[2019-07-10] MEDS ORDERED: PATIENT COMMENTS (04:02)
[2019-07-10] MEDS ORDERED: ONDA4TAB6 PO (04:05)
[2019-07-10] MEDS ORDERED: HYDR100C PO (04:05)
[2019-07-10 05:43] VITALS: BP 121/91
--- NOTE | 2019-07-10 10:27 | HPEPDOC ---
General Date of Admission Jul 10, 2019 at 03:35 Date of Service: Jul 10, 2019 Chief Complaint The patient is a 33-year-old female Who was brought to the emergency room by police after making threats toward her family History of Present Illness Patient is a 33-year-old female with a past medical history of opiate abuse, anxiety who presented to the emergency room after making threats to her family. Patient was reported to have taken knives from the kitchen and turn off the main break her home to scare everyone. . Hospitalist services consultation for medical screening evaluation. Currently patient does not want to participate in the history and physical exam. She denies any pain. Home Medications Scheduled Buprenorphine HCl/Naloxone HCl (Suboxone 8 mg-2 mg Sl Film) 1 Each Film, 1 FILM SL DAILY, (Reported) Scheduled PRN Hydroxyzine Pamoate (Hydroxyzine Pamoate) 100 Mg Capsule, 100 MG PO TID PRN for ANXIETY, (Reported) Ondansetron (Ondansetron Odt) 4 Mg Tab.rapdis, 4 MG PO Q6-8H PRN for nausea/vomiting, (Reported) Miscellaneous Medications [Patient Comments] , (Reported) UNABLE TO OBTAIN INFORMATION ON MEDICATION HISTORY. PATIENT STATES SHE USED SUBOXONE BUT COULD NOT TELL ME THE DATE OR TIME. Allergies Coded Allergies: No Known Allergies (Verified Allergy, Unknown, 04/18/19) Past Medical History Medical History Hx of Opiate Abuse Anxiety Surgical History None reported Family History - Patient refused to answer questions Social History - Patient refused to answer questions Review of Systems Other systems - Patient refused to answer questions Vital Signs - Vitals: BP 121/91, HR 95, RR 16, Sat 99%RA, Temp 97.4F - General: Lying in bed, No acute distress, Speaking in full sentences, Awake / Alert - HEENT: NC, AT - CVS: RRR, +S1S2 - Lungs: Fair air entry bilaterally, No appreciable wheezing / rales / rhonchi - Abdomen: Soft, Non-distended, Non-tender - Extremities: No lower extremity edema, No calf tenderness - Neuro: No focal motor or sensory deficit - Skin: No visible rashes Laboratory Data Labs 24H Laboratory Tests 2 07/09/19 23:29: Urine Opiates Screen NEGATIVE, Urine Methadone Screen NEGATIVE, Urine Barbiturat es Screen NEGATIVE, Urine Phencyclidine Screen NEGATIVE, Urine Amphetamines Screen NEGATIVE, Urine Benzodiazepines Screen NEGATIVE, Urine Cocaine Metabolite Screen NEGATIVE, Urine Cannabinoids Screen NEGATIVE 07/09/19 23:37: Nucleated Red Blood Cells % (auto) 0.0, Anion Gap 7L, Glomerular Filtration Rate > 60.0, Calcium Level 9.7, Total Bilirubin 0.6, Direct Bilirubin 0.1, Aspartate Amino Transf (AST/SGOT) 30, Alanine Aminotransferase (ALT/SGPT) 40, Alkaline Phosphatase 80, Total Protein 8.9H, Albumin 4.6, Albumin/Globulin Ratio 1.07, Thyroid Stimulating Hormone (TSH) 1.160, Human Chorionic Gonadotropin, Qual NEGATIVE, Salicylates Level 5.2, Acetaminophen Level < 2.0L, Ethyl Alcohol Level < 0.003 CBC/BMP Laboratory Tests 07/09/19 23:37 Plan / VTE VTE Prophylaxis Ordered?: Yes Plan Plan Psychosis / Anxiety - Presented to the emergency room after threatening her family - Currently being managed by psychiatry History of opiate abuse - Continue with Suboxone Leukocytosis - Unable to obtain ROS - Remains afebrile and hemodynamically stable - Will hold off on antibiotics at this point DVT prophylaxis - c/w early ambulation GABINO PATIÑO MD Jul 10, 2019 10:27
[2019-07-10] MEDS: ACETAMINOPHEN TAB 650MG DOSE (2X325MG) PO PRN (12:38)
[2019-07-10] MEDS: BUPRENORPHINE/NALOXONE 8-2MG SUBLINGUAL TABLET(SUBOXONE) SL SCH (16:07)
[2019-07-10 16:37] VITALS: BP 116/74
[2019-07-11 06:07] VITALS: BP 111/54
[2019-07-11] MEDS: BUPRENORPHINE/NALOXONE 8-2MG SUBLINGUAL TABLET(SUBOXONE) SL SCH (09:31)
[2019-07-11] MEDS: ACETAMINOPHEN TAB 650MG DOSE (2X325MG) PO PRN (11:17)
--- NOTE | 2019-07-11 14:23 | MHIPN ---
DATE: 07/11/2019 VITAL SIGNS: Temperature 99.3, pulse 72, respirations 14, blood pressure 111/54. CURRENT MEDICATION: Suboxone 8 mg daily, trazodone 50 mg at bedtime as needed. HISTORY OF PRESENT ILLNESS: Patient slept better last night after getting her daily Suboxone. She feels less agitated. She feels a bit more stable. She still has homicidal thoughts towards the step-father. She denies feeling depressed currently. She is still homeless. She is more open about her psychotic symptoms. She is troubled by the troubled by the frequent auditory hallucinations and is not willing to consider a trial of medication. We discussed a trial of Zyprexa or Seroquel. She is willing to consider a trial for either one. MENTAL STATUS EXAM: The patient is alert, oriented, and reasonably cooperative. She is quite anorexic but appears mildly depressed. She is struggling with auditory hallucinations that are quite severe. Insight and judgment appear fair. She is a potential danger to others. No signs of cognitive deficits. Grooming and hygiene are problematic. DIAGNOSIS: Unspecified psychotic disorder methamphetamine and opiate use disorder. PLAN: Trial of Zyprexa 5 mg at bedtime. Continue present management. Staff to work on discharge planning. Continue milieu therapy. MTDD
[2019-07-11] MEDS: OLANZapine ORAL DISINTEGRATING TAB 5MG PO PRN (14:38)
[2019-07-11 16:10] VITALS: BP 124/87
[2019-07-11] MEDS: OLANZapine 5 MG TAB PO SCH (21:00)
[2019-07-12 06:24] VITALS: BP 125/76
[2019-07-12] MEDS: BUPRENORPHINE/NALOXONE 8-2MG SUBLINGUAL TABLET(SUBOXONE) SL SCH (09:05)
[2019-07-12] MEDS: ACETAMINOPHEN TAB 650MG DOSE (2X325MG) PO PRN ×2 (12:14→18:19)
--- NOTE | 2019-07-12 15:53 | MHIPN ---
DATE: 07/12/2019 VITAL SIGNS: Temperature 99.4, pulse 69, respirations 18, blood pressure 125/76. CURRENT MEDICATIONS: - Zyprexa 5 mg at night, patient refusing - buprenorphine 8 mg/2 mg daily - Zyprexa 5 mg every 4 hours as needed HISTORY OF PRESENT ILLNESS: The patient's mother visited yesterday and bringing in some tampons. The patient was irritable with her mother, who then left prematurely. The patient was upset and called her mother multiple times. The patient denies having an anger or temper issue. The patient denies having psychotic symptoms, even though yesterday she was quite open about it. She did take an as needed Zyprexa yesterday afternoon but then refused the Zyprexa standing dose at bedtime. The patient is isolating a lot in the milieu with little involvement with therapeutic activities. The patient is homeless. MENTAL STATUS EXAMINATION: The patient is alert and oriented. She is more verbal today. She denies feeling depressed or suicidal. She denies any homicidal thoughts towards her stepfather. She now denies having any psychotic symptoms but is likely covering. Insight and judgment appear poor. No current signs of dangerousness. Grooming and hygiene seem improved DIAGNOSES: 1. Unspecified psychotic disorder. 2. Methamphetamine and opiate use disorder. PLAN: Continue present management. The patient will see Dr. Galeas on Wednesday to discuss her Suboxone treatment plans. The patient is encouraged to take her standing dose of Zyprexa to treat psychotic symptoms.
[2019-07-12 16:32] VITALS: BP 114/70
[2019-07-12] MEDS: OLANZapine 5 MG TAB PO SCH (20:05)
--- NOTE | 2019-07-12 20:58 | MHHPE ---
DATE OF ADMISSION: 07/10/2019 CURRENT MEDICATIONS: Suboxone 8 mg daily CHIEF COMPLAINT: Homicidal ideation towards father. HISTORY OF PRESENT ILLNESS: This is a 33-year-old white female, , currently homeless. She has a history of unspecified psychotic disorder, opiate use disorder and methamphetamine use disorder. She is under the care of Dr. Galeas at the outpatient clinic. The patient had just been hospitalized here briefly on July 04 through . The patient was supposed to attend [facility] for housing upon discharge and then see Dr. Galeas in the outpatient clinic for her medication. This never happened as she was refused housing by [facility] due to a warrant in [place]. The patient was seen in the emergency room (ER), was describing bizarre ideation at her father; "always in my vagina." The patient was noted to be talking to herself in the emergency room. The patient was thought to have substance-induced psychosis during her recent admission and was not discharged on any antipsychotics. PAST PSYCHIATRIC HISTORY: This is her third inpatient mental health unit hospitalization at [facility]. MEDICAL HISTORY: The patient reports she is healthy. ALLERGIES: The patient denies. ILLEGAL HISTORY: The patient has a charge for a criminal contempt in [place]. She denies current legal issues here in [facility], chemical dependency. The patient states she has history of substance use back to age 16. She has been in a total of 4 rehabilitations over the years. She has a history of heroin use and has been on Suboxone since April by her report. SOCIAL HISTORY: The patient was born and raised in [place]. She has a GED through [employer]. The patient is a poor historian. She has worked multiple jobs over the years, but did not go into any details. The patient states she has a bad relationship with her father and stepfather. The patient is describing bizarre sexual statements regarding her stepfather as mentioned above. FAMILY PSYCHIATRIC HISTORY: The patient denies. MENTAL STATUS EXAMINATION: The patient is alert and oriented, but is not very cooperative. She is a poor historian. She is quite restless. She is agitated by psychomotor agitation. She cannot sit for any length of time, she is up and down pacing. She does report auditory hallucinations, but minimizes it. She denies feeling depressed. She denies manic symptomatology. She denies being a danger to self or others. Insight and judgment appear quite poor. The patient appears impulsive and at risks to self and others in the community. No signs of cognitive deficits. Grooming and hygiene appear poor. ASSESSMENT: The patient does appear to have psychotic symptoms, which might be substantiative or may be chronic in nature. This will need to be assessed further. DIAGNOSES: 1. Unspecified psychotic disorder. 2. Methamphetamine use disorder. 3. Opiate use disorder. LENGTH OF STAY: 5 to 7 days. PLAN: Restart Suboxone. The patient is encouraged to go on trial of antipsychotics such as Seroquel, the patient refuses this at this time. The patient to be involved in hospital milieu.
[2019-07-13 06:17] VITALS: BP 100/60
[2019-07-13] MEDS: BUPRENORPHINE/NALOXONE 8-2MG SUBLINGUAL TABLET(SUBOXONE) SL SCH (09:21)
[2019-07-13] MEDS: ACETAMINOPHEN TAB 650MG DOSE (2X325MG) PO PRN ×2 (09:21→16:23)
--- NOTE | 2019-07-13 15:55 | MHIPN ---
DATE: 07/13/2019 VITAL SIGNS: Temperature 98.3, pulse 62, respirations 16, blood pressure 100/60. CURRENT MEDICATIONS: - Zyprexa 5 mg at night - Suboxone 8 mg/2 mg daily HISTORY OF PRESENT ILLNESS: The patient had a fight with her mother, who visited the other day. Her biological father who lives in [place] did call and they had a supportive conversation. The patient did take her Zyprexa at bedtime last night. The patient goes back and forth regarding psychotic symptoms. Today she does admit to them at a low level. She states that her appetite has improved. She is sleeping better at night with the medication. She still reports moderate depression. Housing is still a problematic issue for her. She is interested in discussing her addiction treatment with Dr. Galeas tomorrow. The patient is still isolate in the milieu. MENTAL STATUS EXAMINATION: The patient is alert, oriented and somewhat more cooperative. Today she does report feeling moderately depressed but not suicidal. The patient does report some auditory hallucinations but minimizes them. Insight and judgment appear fair today. No current signs of dangerousness. Grooming and hygiene are fair. No signs of cognitive deficits. DIAGNOSES: 1. Unspecified psychotic disorder. 2. Methamphetamine and opiate use disorder. PLAN: Continue present management. The patient is to see Dr. Galeas on Wednesday. Staff are working on housing disposition issues.
[2019-07-13 15:59] VITALS: BP 122/73
[2019-07-13] MEDS: OLANZapine ORAL DISINTEGRATING TAB 5MG PO PRN (16:23)
[2019-07-13] MEDS: OLANZapine 5 MG TAB PO SCH (21:00)
[2019-07-14 06:31] VITALS: BP 119/72
[2019-07-14] MEDS ORDERED: NICOINH INH (08:50)
[2019-07-14] MEDS ORDERED: SUBO8MIS SL (08:50)
--- NOTE | 2019-07-14 08:56 | MHDSPDOC ---
[facility] Discharge Summary Discharge Summary DATE OF ADMISSION: Jul 10, 2019 at 03:35 DATE OF DISCHARGE: 07/14/19 Discharge Khang Hadley MRN: N/A Date of : N/A Date of Service: 07/14/2019 Diagnoses Unspecified psychotic disorder. Opioid use disorder, severe. Methamphetamine use disorder, severe. Tobacco use disorder, severe. History of Present Illness The patient a 33-year-old woman who recently was discharged from the unit after using multiple substances becoming psychotic resolving without any significant interventions. Represents in a similar situation quite psychotic after using. She is admitted in order to resolve her psychosis that appears highly likely to be substance-induced. Consultants Involved Hospitalist/PCP screening Treatment and Progress On The Unit The patient was admitted to the inpatient unit where she subsequently resolved without much intervention further suggesting substance-induced. She was not restarted directly on her buprenorphine as she was covered by a covering physician who did not feel comfortable restarting it on her at that time. The patient as she recovered further demonstrate more borderline traits and was more irritable and say that she was homeless and that she did not care whether she was here or there and that she would just come back in if she needed buprenorphine. The patient on the day of discharge requested to leave, was not psychotic, denied any suicidal or homicidal ideation, was able to participate in her discharge and did not meet involuntary criteria in my opinion and declined further voluntary admission. Discharge Assessment 33-year-old woman with borderline traits presents after likely substance-induced psychosis resolved without significant interventions, further supporting that she unlikely has an underlying organic psychotic disorder. Mental Status Examination General: Well dressed with good hygiene Speech: Spontaneous and fluid Thought processes: Linear and logical MSK: Smooth and coordinated gait, no signs of tremors or involuntary orofacial movements Thought content: Future orientated Abstract reasoning, and computation: Intact Description of associations: Intact Description of abnormal or psychotic thoughts: Denies any suicidal or homicidal ideation. Denies any auditory or visual hallucinations. Does not appear to be responding to internal stimuli. Does not appear to be endorsing any bizarre or paranoid ideation. Judgment: fair Insight: fair Orientation: Alert and orientated 3 Cognition: Grossly normal Recent and remote memory: Intact Attention span and concentration: Intact Fund of knowledge: Adequate Mood: "okay" Affect: Euthymic with a full range Follow Up The social work team worked during the predischarge meeting in order to evaluate for further issues of lethality address them fully before discharge. They worked on safety planning with the patient's family members in order to ensure that the patient will have a safe and effective discharge. Time Spent The amount of time spent in the coordination of care for this patient was approximately 90 minutes. Wednesday Vital Signs/I&Os Vital Signs Date Time Temp Pulse Resp B/P (MAP) Pulse Ox O2 Delivery O2 Flow Rate FiO2 07/14/19 06:31 99.0 77 12 119/72 (88) Room Air 07/10/19 05:43 99 Medications Scheduled Buprenorphine HCl/Naloxone HCl (Suboxone 8 mg-2 mg Sl Film) 1 Each Film, 1 FILM SL DAILY for opioid for 3 Days, #3 Hydroxyzine Pamoate (Hydroxyzine Pamoate) 100 Mg Capsule, 100 MG PO TID for 30 Days, #90 (Reported) Nicotine (Nicotrol) 10 Mg Cartridge, 1 PUFF INH ASDIRECTED for tobacco for 30 Days, #1 Scheduled PRN Ondansetron HCl (Zofran) 4 Mg Tablet, 4 MG PO Q6-8HP PRN for nausea/vomiting for 2 Days, #5 (Reported) Allergies Coded Allergies: No Known Allergies (Verified Allergy, Unknown, 04/18/19) MARIAMA SUMMERS DO Jul 14, 2019 08:56
[2019-07-14] MEDS: ACETAMINOPHEN TAB 650MG DOSE (2X325MG) PO PRN (09:16)
[2019-07-14] MEDS: BUPRENORPHINE/NALOXONE 8-2MG SUBLINGUAL TABLET(SUBOXONE) SL SCH (09:25)
== END 2019-07-14 12:30 | disposition home or self-care (01) | DRG 751 ==
LOC: M ED 22:35 → M ED INP 07-10 03:35 → M PSY 07-10 05:07
PROVIDERS: ADMIT Psychiatry & Neurology Psychiatry; ATTEND Psychiatry & Neurology Addiction Medicine
DX: F29 Unspecified psychosis not due to a substance or known physiological condition (principal); D72.829 Elevated white blood cell count, unspecified; F11.90 Opioid use, unspecified, uncomplicated; F17.200 Nicotine dependence, unspecified, uncomplicated; F41.9 Anxiety disorder, unspecified

== ENCOUNTER 2019-07-16 06:13 | Emergency (ER) | payer MEDICAID, OTHER ==
[~2019-07-16] VITALS: Ht 167.6 cm; Wt 54.5 kg
[~2019-07-16 06:13] MED LIST changes: +NICOINH INH; +PATIENT COMMENTS
[2019-07-16] MEDS ORDERED: ZOFR4TAB16 PO (06:32)
[2019-07-16] MEDS ORDERED: HYDR100C PO (06:32)
[2019-07-16] MEDS ORDERED: diphenhydrAMINE INJ 50MG/ML VIAL (J1200) As Ordered ONE (07:44)
[2019-07-16] MEDS ORDERED: diphenhydrAMINE INJ 50MG/ML VIAL (J1200) IM ONE (07:45)
[2019-07-16] MEDS ORDERED: LORazepam 2 MG/ML VIAL (J2060) As Ordered ONE (07:45)
[2019-07-16] MEDS ORDERED: HALOPERIDOL 5 MG/ML VIAL (J1630) As Ordered ONE (07:45)
[2019-07-16] MEDS ORDERED: LORazepam 2 MG/ML VIAL (J2060) IM ONE (07:45)
[2019-07-16] MEDS ORDERED: HALOPERIDOL 5 MG/ML VIAL (J1630) IM ONE (08:00)
[2019-07-16 08:04] LABS: HEMOGLOBIN 13.8 g/dl (12.0-15.5); MEAN CORPUSCULAR HEMOGLOBIN 29.7 pg (27.0-33.0); MEAN CORPUSCULAR HGB CONC 32.9 g/dl (32.0-36.5); MEAN CORPUSCULAR VOLUME 90.5 fl (80.0-96.0); PLATELET COUNT, AUTOMATED 293 10^3/uL (150-450); RED BLOOD COUNT 4.64 10^6/uL (4.00-5.40); WHITE BLOOD COUNT 12.2 10^3/uL (4.0-10.0)
[2019-07-16 08:26] LABS: HCG, SERUM QUALITATIVE NEGATIVE (NEGATIVE)
[2019-07-16 08:27] LABS: AMPHETAMINES LEVEL URINE NEGATIVE (NEGATIVE); BARBITURATES URINE NEGATIVE (NEGATIVE); BENZODIAZEPINES URINE NEGATIVE (NEGATIVE); CANNABINOIDS URINE NEGATIVE (NEGATIVE); COCAINE METABOLITE URINE NEGATIVE (NEGATIVE); METHADONE URINE NEGATIVE (NEGATIVE); OPIATES URINE NEGATIVE (NEGATIVE); PHENCYCLIDINE URINE NEGATIVE (NEGATIVE)
[2019-07-16 08:50] LABS: ACETAMINOPHEN LEVEL < 2.0 UG/ML (10.0-30.0); ALBUMIN 4.4 GM/DL (3.2-5.2); ALT/SGPT 38 U/L (12-78); BILIRUBIN,DIRECT 0.2 MG/DL (0.0-0.2); BILIRUBIN,TOTAL 0.4 MG/DL (0.2-1.0); BLOOD UREA NITROGEN 13 MG/DL (7-18); CALCIUM LEVEL 9.2 MG/DL (8.5-10.1); CARBON DIOXIDE LEVEL 21 MEQ/L (21-32); CHLORIDE LEVEL 108 MEQ/L (98-107); CREATININE FOR GFR 0.98 MG/DL (0.55-1.30); ETHYL ALCOHOL (ETHANOL) < 0.003 % (0.000-0.010); GLOMERULAR FILTRATION RATE > 60.0 (>60); GLUCOSE, FASTING 103 MG/DL (70-100); SALICYLATE LEVEL 5.4 MG/DL (5.0-30.0); SODIUM LEVEL 140 MEQ/L (136-145); TOTAL PROTEIN 8.2 GM/DL (6.4-8.2)
[2019-07-17] MEDS ORDERED: HYDR100C PO (08:21)
[2019-07-17] MEDS ORDERED: SUBO8MIS SL (08:21)
[2019-07-17] MEDS ORDERED: ONDA4TAB5 PO (08:21)
[2019-07-17] MEDS ORDERED: NICOINH INH (08:21)
[2019-07-17] MEDS ORDERED: BACTRIM 160MG/800MG DS TAB PO ONE (08:30)
[2019-07-17] MEDS ORDERED: valACYclovir HCL 500 MG TAB PO ONE (08:30)
--- NOTE | 2019-07-17 08:31 | ED PDOC ---
Provider Note Consult Khang Hadley MRN: N/A Date of : N/A Date of Service: 07/17/2019 Chief Complaint Consultation for safety in the ER. History of Present Illness The patient a well-known 33-year-old woman who was treated by myself at outpatient addiction, and was recently yesterday discharged from inpatient mental health after presenting for likely substance-induced psychosis after using methamphetamines. Presents to the ER under uncertain circumstances after a pick-up order was called after her father had noted that she was dismissive and agitated. She was brought in and had denied suicidal or homicidal ideation through her stay. She was notably sedated with a negative urine tox screen. The patient has a history of notably using synthetics. When I met with the patient she described that she had been dismissive to her father, and due to concerns he had called the police to bring her in. She reported she had been upset, the recorded incidence that it brought her in was reported drug-induced psychosis as previously described where she had become quite psychotic and angry with her mother, when she initially presented she did require a code and medications, however, when I met with her she had been restored to her baseline condition in which she was no longer psychotic and had reported that she recovered from her substance use. She after the initial p resentation had done quite well after she had been amenable to PSA interventions. She reports no changes from her previous symptoms since her discharge, and reports no major social interventions. Psychosocial information below is taken from previous H&P and updated accordingly. Review Of Systems Depression: No changes. Anxiety: No changes. Kelle: No changes. Psychotic: No changes other than the aforementioned. Trauma: No changes. Borderline: No changes. Past Psychiatric History The patient has several psychiatric admissions for substance-induced psychosis has been previously tried on olanzapine, currently on buprenorphine. Denies any history of suicide attempts. Currently follows with outpatient addictions. Family Psychiatric History Denies a history of any suicides in the family. Social History The patient is a woman who self identifies as lesbian, currently homeless. No significant legal problems noted, has no current income, has a GED, has been arrested in the past for criminal contempt, reportedly grew up with parents , previously has denied any abuse. Medical History Patient has no significant past medical history. Allergies See below Mental Status Examination General: Well dressed with good hygiene Speech: Spontaneous and fluid Thought processes: Linear and logical MSK: Smooth and coordinated gait, no signs of tremors or involuntary orofacial movements Thought content: Future orientated Abstract reasoning, and computation: Intact Description of associations: Intact Description of abnormal or psychotic thoughts: Denies any suicidal or homicidal ideation. Denies any auditory or visual hallucinations. Does not appear to be responding to internal stimuli. Does not appear to be endorsing any bizarre or paranoid ideation. Judgment: fair Insight: fair Orientation: Alert and orientated 3 Cognition: Grossly normal Recent and remote memory: Intact Attention span and concentration: Intact Fund of knowledge: Adequate Mood: "okay" Affect: Euthymic with a full range Diagnoses Opioid use disorder, severe, on maintenance. Methamphetamine/stimulant use disorder, severe. Tobacco use disorder, severe. Cannabis use disorder, severe. Assessment and Plan The patient a 33-year-old woman presents again after a repeat of relapsing on stimulants. She presents psychotic after relapsing on synthetic stimulants, which is her drug of choice at this time. She resolves quickly after a short observation returning to a more or less normal mental status. She has a significant addiction problem and I give her my hearty recommendations to return to the addiction clinic today to maintain treatment. She still has several of her Suboxone strips from her previous discharge. The patient at this time does not meet involuntary criteria for commitment, as she has been denying suicidal and homicidal ideation at the time of discharge, has a normal mental status, is cooperative and pleasant. She declines voluntary admission and thus must be discharged in good norman. Disposition Discharge to home/addiction clinic. Time Spent 30 minutes. Wednesday MARIAMA SUMMERS DO Jul 17, 2019 08:31
[2019-07-17] MEDS ORDERED: BACT800T5 PO (08:35)
[2019-07-17] MEDS ORDERED: VALA1TAB64 PO (08:35)
[2019-07-17] MEDS ORDERED: BUPRENORPHINE/NALOXONE 8-2MG SUBLINGUAL TABLET(SUBOXONE) SL SCH (09:00)
[2019-07-17] MEDS ORDERED: hydrOXYzine 50 MG TAB PO SCH (09:00)
[2019-07-17 09:09] VITALS: BP 163/67
== END 2019-07-17 09:17 | disposition home or self-care (01) ==
LOC: M ED 06:13
DX: F19.10 Other psychoactive substance abuse, uncomplicated (principal); F17.200 Nicotine dependence, unspecified, uncomplicated; F41.9 Anxiety disorder, unspecified; B00.1 Herpesviral vesicular dermatitis
CPT/HCPCS: 80048; 80076; 80307; 84443; 84703; 85027; 96372; 99285; G0480; J1200; J1630; J2060

== ENCOUNTER 2019-07-20 08:10 | Emergency (ER) | payer OTHER ==
[~2019-07-20] VITALS: Ht 167.6 cm; Wt 54.5 kg
[~2019-07-20 08:10] MED LIST changes: +BACT800T5 PO; +ONDA4TAB5 PO; +VALA1TAB64 PO; +ZOFR4TAB16 PO
[2019-07-20] MEDS ORDERED: LORazepam 1 MG TAB PO STA (08:38)
[2019-07-20 08:42] LABS: HEMATOCRIT 39.7 % (36.0-47.0); HEMOGLOBIN 13.2 g/dl (12.0-15.5); MEAN CORPUSCULAR HEMOGLOBIN 29.7 pg (27.0-33.0); MEAN CORPUSCULAR HGB CONC 33.2 g/dl (32.0-36.5); MEAN CORPUSCULAR VOLUME 89.4 fl (80.0-96.0); PLATELET COUNT, AUTOMATED 258 10^3/uL (150-450); RED BLOOD COUNT 4.44 10^6/uL (4.00-5.40); WHITE BLOOD COUNT 10.1 10^3/uL (4.0-10.0)
[2019-07-20 09:05] LABS: AMPHETAMINES LEVEL URINE NEGATIVE (NEGATIVE); BARBITURATES URINE NEGATIVE (NEGATIVE); BENZODIAZEPINES URINE NEGATIVE (NEGATIVE); CANNABINOIDS URINE NEGATIVE (NEGATIVE); COCAINE METABOLITE URINE POSITIVE (NEGATIVE); METHADONE URINE NEGATIVE (NEGATIVE); OPIATES URINE NEGATIVE (NEGATIVE); PHENCYCLIDINE URINE NEGATIVE (NEGATIVE)
[2019-07-20 09:10] LABS: HCG, SERUM QUALITATIVE NEGATIVE (NEGATIVE)
[2019-07-20 09:23] LABS: ACETAMINOPHEN LEVEL < 2.0 UG/ML (10.0-30.0); ALBUMIN 4.6 GM/DL (3.2-5.2); ALT/SGPT 34 U/L (12-78); BILIRUBIN,DIRECT 0.1 MG/DL (0.0-0.2); BILIRUBIN,TOTAL 0.4 MG/DL (0.2-1.0); BLOOD UREA NITROGEN 7 MG/DL (7-18); CALCIUM LEVEL 9.3 MG/DL (8.5-10.1); CARBON DIOXIDE LEVEL 22 MEQ/L (21-32); CHLORIDE LEVEL 110 MEQ/L (98-107); CREATININE FOR GFR 0.92 MG/DL (0.55-1.30); ETHYL ALCOHOL (ETHANOL) < 0.003 % (0.000-0.010); GLOMERULAR FILTRATION RATE > 60.0 (>60); GLUCOSE, FASTING 95 MG/DL (70-100); POTASSIUM SERUM 4.2 MEQ/L (3.5-5.1); SALICYLATE LEVEL 5.7 MG/DL (5.0-30.0); SODIUM LEVEL 140 MEQ/L (136-145); TOTAL PROTEIN 8.2 GM/DL (6.4-8.2)
--- NOTE | 2019-07-20 09:30 | ED PDOC ---
Provider Note Consult Khang Hadley MRN: N/A Date of : N/A Date of Service: 07/20/2019 Chief Complaint Consultation for safety in the ER. History of Present Illness The patient, a well-known 33-year-old woman who has significant addictions to cocaine, methamphetamines and opioids, who has been on MAT, recently presented to the ER after using injectable methamphetamine, presents again after becoming irritable with her father after admittedly doing several lines of cocaine. She is brought in by the police and observed on abundance of caution where her irritability resolves, consistent with cocaine use. She is met with in order to determine if she needs inpatient hospitalization. The patient reports that she is amenable to going to inpatient rehab and reports she understands the difficulty in her situation with her use. She has returned to being euthymic, has had no major behavioral outbursts in the ER and has returned to her normal mental status and consistent with her significant addictions. The patient reports that she still has one strip of her buprenorphine and is actually scheduled to see myself at addiction later today. The patient reports that she is feeling better and wants to engage with going to long-term treatment as her addiction has become out of control. She has been denying suicidal and homicidal ideation through the entirety of her ER presentation. Reports no changes in her psychiatric symptoms and the psychosocial information below is extracted from my previous notes and updated as appropriate. Review Of Systems Depression: No changes. Anxiety: No changes. Kelle: No changes. Psychotic: No changes. Trauma: No changes. Borderline: No changes. Past Psychiatric History The patient denies any diagnosis of psychiatric problems and has only had likely substance-induced psychotic problems in the past. Has been tried on olanzapine, risperidone and hydroxyzine for her psychotic substance-induced problems. Currently not following with any outpatient mental health, but follows with outpatient addiction on MAT buprenorphine. Denies a history of suicide attempt. Family Psychiatric History The patient denies/is unaware any history of mental health history including addictions and suicide. Social History The patient is a currently woman who identifies as lesbian, has no children. Achieved high school education. Has multiple criminal problems including a warrant in [place]. She is currently also on probation for criminal contempt in the 1st degree and grand larceny related to her drug use. She currently lives with her parents. Medical History Patient has no significant past medical history. Allergies See below Mental Status Examination General: Well dressed with good hygiene Speech: Spontaneous and fluid Thought processes: Linear and logical MSK: Smooth and coordinated gait, no signs of tremors or involuntary orofacial movements Thought content: Future orientated Abstract reasoning, and computation: Intact Description of associations: Intact Description of abnormal or psychotic thoughts: Denies any suicidal or homicidal ideation. Denies any auditory or visual hallucinations. Does not appear to be responding to internal stimuli. Does not appear to be endorsing any bizarre or paranoid ideation. Judgment: fair Insight: fair Orientation: Alert and orientated 3 Cognition: Grossly normal Recent and remote memory: Intact Attention span and concentration: Intact Fund of knowledge: Adequate Mood: "okay" Affect: Euthymic with a full range Diagnoses Opioid use disorder, severe. Tobacco use disorder, severe. Cocaine use disorder, severe. Methamphetamine use disorder, severe. Hallucinogen use disorder, severe. Assessment and Plan 33-year-old woman with a long history of addiction, presents after becoming i ntoxicated on cocaine, subsequently becoming more irritable with her father where she is brought in out of abundance of caution when the police were called. She has multiple episodes of substance-induced psychosis, which she has admitted that she has used multiple times and is amenable to inpatient rehab. The patient has an appointment with me on an outpatient addiction where we will be able to facilitate this today. She has been denying suicidal and homicidal ideation, has a normal mental status exam, is cooperative and amenable with no behavioral control problems while in the ER and has resolved her cocaine intoxication. She declines voluntary admission and in my opinion does not meet involuntary criteria and thus is discharged in good norman to the addiction clinic where she will follow up in order to have referrals undertaken for inpatient rehab. Disposition Discharged home to home/addiction. Time Spent 30 minutes. MARIAMA SUMMERS DO Jul 20, 2019 09:30
[2019-07-20 10:37] VITALS: BP 122/74
== END 2019-07-20 10:53 | disposition home or self-care (01) ==
LOC: M ED 08:10
DX: F14.10 Cocaine abuse, uncomplicated (principal); Z79.891 Long term (current) use of opiate analgesic
CPT/HCPCS: 36415; 80048; 80076; 80307; 84443; 84703; 85027; 99284; G0480

== ENCOUNTER 2019-07-26 13:30 | Outpatient (RCR) | payer MEDICAID ==
[~2019-07-26 13:30] MED LIST changes: +ONDA-83 PO; -ONDA4TAB5 PO
== END 2019-08-18 ==
LOC: M OUTALCOH 13:30
PROVIDERS: ATTEND Psychiatry & Neurology Psychiatry
DX: F11.20 Opioid dependence, uncomplicated (principal); F10.20 Alcohol dependence, uncomplicated; F14.20 Cocaine dependence, uncomplicated; F15.20 Other stimulant dependence, uncomplicated

== ENCOUNTER 2019-11-20 15:33 | Emergency (ER) | payer MEDICAID, OTHER ==
[~2019-11-20 15:33] MED LIST changes: +VALA1TAB5 PO; -VALA1TAB64 PO
[2019-11-20] MEDS ORDERED: LORazepam 2 MG TAB PO STA (16:06)
[2019-11-20 16:41] LABS: HEMATOCRIT 36.6 % (36.0-47.0); HEMOGLOBIN 12.9 g/dl (12.0-15.5); MEAN CORPUSCULAR HGB CONC 35.2 g/dl (32.0-36.5); MEAN CORPUSCULAR VOLUME 85.1 fl (80.0-96.0); PLATELET COUNT, AUTOMATED 258 10^3/uL (150-450)
[2019-11-20 17:15] LABS: HCG, SERUM QUALITATIVE NEGATIVE (NEGATIVE)
[2019-11-20 17:23] LABS: AMPHETAMINES LEVEL URINE NEGATIVE (NEGATIVE); BARBITURATES URINE NEGATIVE (NEGATIVE); BENZODIAZEPINES URINE NEGATIVE (NEGATIVE); CANNABINOIDS URINE NEGATIVE (NEGATIVE); COCAINE METABOLITE URINE POSITIVE (NEGATIVE); METHADONE URINE NEGATIVE (NEGATIVE); OPIATES URINE NEGATIVE (NEGATIVE); PHENCYCLIDINE URINE NEGATIVE (NEGATIVE)
[2019-11-20 17:26] LABS: ACETAMINOPHEN LEVEL < 2.0 UG/ML (10.0-30.0); ALBUMIN 4.4 GM/DL (3.2-5.2); ALT/SGPT 38 U/L (12-78); BILIRUBIN,DIRECT 0.2 MG/DL (0.0-0.2); BILIRUBIN,TOTAL 0.5 MG/DL (0.2-1.0); BLOOD UREA NITROGEN 10 MG/DL (7-18); CALCIUM LEVEL 9.3 MG/DL (8.5-10.1); CARBON DIOXIDE LEVEL 27 MEQ/L (21-32); CHLORIDE LEVEL 105 MEQ/L (98-107); CREATININE FOR GFR 0.82 MG/DL (0.55-1.30); ETHYL ALCOHOL (ETHANOL) < 0.003 % (0.000-0.010); GLOMERULAR FILTRATION RATE > 60.0 (>60); GLUCOSE, FASTING 104 MG/DL (70-100); POTASSIUM SERUM 3.9 MEQ/L (3.5-5.1); SALICYLATE LEVEL 5.9 MG/DL (5.0-30.0); SODIUM LEVEL 140 MEQ/L (136-145); TOTAL PROTEIN 7.9 GM/DL (6.4-8.2)
[2019-11-20 17:59] LABS: CPK CREATINE PHOSPHOKINASE 1984 U/L (26-192)
--- NOTE | 2019-11-20 18:44 | ECGEPIP ---
[facility] - ED Test Date: 2019-11-20 Pat Name: MERCY AGUILA Department: Room: - Gender: Female System Administration Advisor: ct : 1985 Requested By: Tyesha Ruffin Order Number: [id number] Reading MD: Tyesha Ruffin Measurements Intervals [place] Rate: 87 P: -7 HI: 110 QRS: 67 QRSD: 89 T: 49 QT: 373 QTc: 451 Interpretive Statements SINUS RHYTHM WITH SHORT HI INTERVAL No prior Electronically Signed on 11-20-2019 18:43:55 EDT by Tyesha Ruffin
[2019-11-21 03:01] VITALS: BP 120/66
== END 2019-11-21 03:04 | disposition home or self-care (01) ==
LOC: M ED 15:33
DX: F19.10 Other psychoactive substance abuse, uncomplicated (principal); R44.3 Hallucinations, unspecified; R45.1 Restlessness and agitation; Z79.899 Other long term (current) drug therapy
CPT/HCPCS: 36415; 80048; 80076; 80307; 82550; 84443; 84703; 85027; 93005; 99284; G0480

== ENCOUNTER 2020-01-25 14:18 | Emergency (ER) | payer OTHER ==
[~2020-01-25] VITALS: Ht 167.6 cm; Wt 61.4 kg
[2020-01-25] MEDS ORDERED: LACT20EL PO (14:51)
[2020-01-25] MEDS ORDERED: SUBO12MI SL (14:51)
[2020-01-25 17:03] VITALS: BP 144/79
== END 2020-01-25 17:00 | disposition home or self-care (01) ==
LOC: M ED 14:18
DX: F41.9 Anxiety disorder, unspecified (principal); F11.20 Opioid dependence, uncomplicated; Z79.899 Other long term (current) drug therapy

== ENCOUNTER 2020-02-10 18:10 | Emergency (ER) | payer OTHER ==
[~2020-02-10 18:10] MED LIST changes: +LACT20EL PO; +SUBO12MI SL
== END 2020-02-10 18:45 | disposition home or self-care (01) ==
LOC: M ED 18:10
DX: H60.91 Unspecified otitis externa, right ear (principal); F15.10 Other stimulant abuse, uncomplicated; Z79.891 Long term (current) use of opiate analgesic; F17.210 Nicotine dependence, cigarettes, uncomplicated

== ENCOUNTER 2020-02-12 11:55 | Emergency (ER) | payer OTHER ==
[~2020-02-12 11:55] MED LIST changes: +NICOTINE 21MG/24HR 1 EA TRANSDERMAL ONE
[2020-02-12] MEDS ORDERED: NICOTINE 21MG/24HR 1 EA TRANSDERMAL As Ordered ONE (13:12)
== END 2020-02-12 13:40 | disposition home or self-care (01) ==
LOC: M ED 11:55
DX: F29 Unspecified psychosis not due to a substance or known physiological condition (principal); F32.9 Major depressive disorder, single episode, unspecified; F41.9 Anxiety disorder, unspecified; F17.210 Nicotine dependence, cigarettes, uncomplicated; F19.10 Other psychoactive substance abuse, uncomplicated; Z79.899 Other long term (current) drug therapy

== ENCOUNTER 2020-02-29 22:02 | Inpatient (IN) | payer MEDICAID, OTHER ==
[~2020-02-29 22:02] MED LIST changes: -NICOTINE 21MG/24HR 1 EA TRANSDERMAL ONE
[2020-03-01] MEDS ORDERED: MULTIVITAMINS/MINERALS THERAP 1 TAB ONE ×2 (07:54→11:43)
[2020-03-01] MEDS ORDERED: FOLIC ACID 1 MG TAB ONE ×2 (07:54→11:43)
[2020-03-01] MEDS ORDERED: THIAMINE 100 MG TAB ONE ×3 (07:54→20:54)
[2020-03-01] MEDS ORDERED: BUPRENORPHINE/NALOXONE 8-2MG SUBLINGUAL TABLET(SUBOXONE) ONE (17:18)
[2020-03-01] MEDS ORDERED: NICOTINE 21MG/24HR 1 EA TRANSDERMAL ONE (18:46)
[2020-03-01] MEDS ORDERED: MOM 30ML SUSPENSION UDC ONE (20:54)
[2020-03-01] MEDS ORDERED: OLANZapine ORAL DISINTEGRATING TAB 5MG ONE (22:25)
[2020-03-02] MEDS ORDERED: FOLIC ACID 1 MG TAB ONE (09:30)
[2020-03-02] MEDS ORDERED: NICOTINE 21MG/24HR 1 EA TRANSDERMAL ONE (09:30)
[2020-03-02] MEDS ORDERED: ACETAMINOPHEN TAB 650MG DOSE (2X325MG) ONE (09:30)
[2020-03-02] MEDS ORDERED: MULTIVITAMINS/MINERALS THERAP 1 TAB ONE (09:30)
[2020-03-02] MEDS ORDERED: THIAMINE 100 MG TAB ONE ×2 (09:30→20:13)
[2020-03-02] MEDS ORDERED: BUPRENORPHINE/NALOXONE 8-2MG SUBLINGUAL TABLET(SUBOXONE) ONE (09:30)
[2020-03-02] MEDS ORDERED: OLANZapine ORAL DISINTEGRATING TAB 5MG ONE (20:13)
[2020-03-02] MEDS ORDERED: MOM 30ML SUSPENSION UDC ONE (20:13)
[2020-03-03] MEDS ORDERED: FOLIC ACID 1 MG TAB ONE (08:38)
[2020-03-03] MEDS ORDERED: THIAMINE 100 MG TAB ONE ×2 (08:38→19:57)
[2020-03-03] MEDS ORDERED: NICOTINE 21MG/24HR 1 EA TRANSDERMAL ONE (08:38)
[2020-03-03] MEDS ORDERED: MULTIVITAMINS/MINERALS THERAP 1 TAB ONE (08:38)
[2020-03-03] MEDS ORDERED: BUPRENORPHINE/NALOXONE 8-2MG SUBLINGUAL TABLET(SUBOXONE) ONE (08:38)
[2020-03-03] MEDS ORDERED: MOM 30ML SUSPENSION UDC ONE (10:21)
[2020-03-03] MEDS ORDERED: OLANZapine ORAL DISINTEGRATING TAB 5MG ONE (19:57)
[2020-03-03] MEDS ORDERED: SENNA 8.6 MG TAB (SENOKOT) ONE (19:57)
[2020-03-03] MEDS ORDERED: PALIPERIDONE 3 MG ER TAB (INVEGA) ONE (19:57)
[2020-03-04] MEDS ORDERED: FOLIC ACID 1 MG TAB ONE (09:22)
[2020-03-04] MEDS ORDERED: BUPRENORPHINE/NALOXONE 8-2MG SUBLINGUAL TABLET(SUBOXONE) ONE (09:22)
[2020-03-04] MEDS ORDERED: SENNA 8.6 MG TAB (SENOKOT) ONE ×2 (09:22→21:04)
[2020-03-04] MEDS ORDERED: NICOTINE 21MG/24HR 1 EA TRANSDERMAL ONE (09:22)
[2020-03-04] MEDS ORDERED: THIAMINE 100 MG TAB ONE (09:22)
[2020-03-04] MEDS ORDERED: MULTIVITAMINS/MINERALS THERAP 1 TAB ONE (09:22)
[2020-03-04] MEDS ORDERED: MOM 30ML SUSPENSION UDC ONE (18:52)
[2020-03-04] MEDS ORDERED: OLANZapine ORAL DISINTEGRATING TAB 5MG ONE (21:04)
[2020-03-04] MEDS ORDERED: PALIPERIDONE 3 MG ER TAB (INVEGA) ONE (21:04)
[2020-03-04] MEDS ORDERED: ACETAMINOPHEN TAB 650MG DOSE (2X325MG) ONE (21:04)
[2020-03-05] MEDS ORDERED: BUPRENORPHINE/NALOXONE 8-2MG SUBLINGUAL TABLET(SUBOXONE) ONE (08:56)
[2020-03-05] MEDS ORDERED: NICOTINE 21MG/24HR 1 EA TRANSDERMAL ONE (08:56)
[2020-03-05] MEDS ORDERED: FOLIC ACID 1 MG TAB ONE (08:56)
[2020-03-05] MEDS ORDERED: MULTIVITAMINS/MINERALS THERAP 1 TAB ONE (08:56)
[2020-03-05] MEDS ORDERED: ACETAMINOPHEN TAB 650MG DOSE (2X325MG) PO PRN (20:15)
[2020-03-05] MEDS ORDERED: MAALOX 30 ML SUSP *UDC PO PRN (20:15)
[2020-03-05] MEDS ORDERED: traZODone 50 MG TAB PO PRN (20:15)
[2020-03-05] MEDS ORDERED: OLANZapine ORAL DISINTEGRATING TAB 5MG PO PRN (20:15)
[2020-03-05] MEDS ORDERED: LORazepam 2 MG TAB PO PRN (20:15)
[2020-03-05] MEDS ORDERED: MOM 30ML SUSPENSION UDC PO PRN (20:15)
[2020-03-05] MEDS ORDERED: PALIPERIDONE 3 MG ER TAB (INVEGA) PO SCH (21:00)
[2020-03-05] MEDS ORDERED: SENNA 8.6 MG TAB (SENOKOT) PO SCH (21:00)
[2020-03-06] MEDS ORDERED: FOLIC ACID 1 MG TAB PO SCH (09:00)
[2020-03-06] MEDS ORDERED: MULTIVITAMINS/MINERALS THERAP 1 TAB PO SCH (09:00)
[2020-03-06] MEDS ORDERED: BUPRENORPHINE/NALOXONE 8-2MG SUBLINGUAL TABLET(SUBOXONE) SL SCH (09:00)
[2020-03-06] MEDS ORDERED: NICOTINE 21MG/24HR 1 EA TRANSDERMAL TD SCH (09:00)
[2020-04-15 01:02] LABS: BASO # 0.1 10^3/uL (0.0-0.2); EOS # 0.2 10^3/uL (0.0-0.5); EOS % 2.2 % (0.0-3.0); HEMATOCRIT 39.7 % (36.0-47.0); HEMOGLOBIN 13.7 g/dl (12.0-15.5); LYMPH # 2.9 10^3/uL (1.5-5.0); LYMPH % 42.9 % (24.0-44.0); MEAN CORPUSCULAR HEMOGLOBIN 30.2 pg (27.0-33.0); MEAN CORPUSCULAR HGB CONC 34.5 g/dl (32.0-36.5); MEAN CORPUSCULAR VOLUME 87.6 fl (80.0-96.0); MONO # 0.6 10^3/uL (0.0-0.8); MONO % 8.1 % (0.0-5.0); NEUTROPHILS # 3.1 10^3/uL (1.5-8.5); NEUTROPHILS % 45.7 % (36.0-66.0); PLATELET COUNT, AUTOMATED 189 10^3/uL (150-450); RED BLOOD COUNT 4.53 10^6/uL (4.00-5.40); WHITE BLOOD COUNT 6.8 10^3/uL (4.0-10.0)
--- NOTE | 2020-05-03 07:57 | MHIPN ---
DATE: 03/04/2020 SUBJECTIVE: The system is still down. I am assigned to the patients care. She is seen in the presence of staff. She says she is doing fine, essentially wants to go home, and says came here because she was bored, and that she felt bored yesterday, suggests nothing has changed except that that it is a housecleaner place where she lives. She sleeps well. She has been sleeping quite a fair amount. Appetite has been good. She says she has been harassed by the electromagnetic field for a long time, vague on time frames, but does not think that is a major problem currently, and does not remember why she was admitted to the hospital. MENTAL STATUS EXAM: Neat, cooperative, somewhat guarded, mildly irritable as well. No overt agitation, however. No psychomotor retardation. Affect is restricted in range. Denies any suicidal thoughts or intents. No homicidal ideation or intents. Does not appear to be internally preoccupied but has paranoid delusions, those of persecution. Her judgment, fair insight is limited into these delusions in particular. Cognition is grossly intact. ASSESSMENT: Primary versus secondary psychotic disorder, schizoaffective disorder would be one of them, and it is unlikely that this is drug-induced at present, as far as I am aware. She suggests that it has been many months since she has used any drugs, particularly heroin. She takes Suboxone, says she takes 12 mg rather than the 8 that she is on here. RECOMMENDATIONS AND PLAN: Continue current care. Will increase the Suboxone to 12 mg, which is apparently her outpatient dose, encourage participation in activities on the unit. Wishes to go home. I do not think at this point that she is ready to do that. We will explore a safe discharge. I asked her if there is any person we could contact in terms of support to find out more about what she would have available, she declined, indicated did not any others involved. She says she stays on her own. Further recommendations will be made depending on the clinical picture. It should also be noted she is also on Invega. She says she does not take medications as an outpatient and does not plan to do so either, either than the Suboxone. She seen at [facility] for both substance abuse as well as mental health. MAXIMINO
--- NOTE | 2020-05-16 20:49 | MHDSPDOC ---
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 She recen tly left rehab. Patient presented somewhat disturbed, but resolved quicklyAlthough she had some baseline unusual thinking from time to time, she did not mention any suicidal or homicidal ideation. She was uninterested in care, but was never violent or aggressive. The patient was observed having some very mild, unusual beliefs, but was not determined to meet involuntary criteria for further extension as she was requesting to go home. MEDICATIONS: She is currently on Suboxone. She was resumed on Suboxone 12 mg and generally stabilized. DISCHARGE ASSESSMENT[improved] We will discharge patient with home Suboxone at this time. On mental status exam, she does not meet involuntary criteria. She has returned to baseline, and her unusual thinking appears to be circumscribed internally, not present consistently. She denies suicidal or homicidal ideation through the entirety of the visit and denies any auditory or visual hallucinations. I have difficulty making an argument despite her historical characteristics, and her dynamic factors mean that she is at imminent risk. She would be unlikely to be treated over her objection and be highly unlikely to be held against her will and thus after declining voluntary extension, will be discharged in good norman. Legal status considerations: The patient at the time of discharge did not meet criteria for involuntary admission/extension due to having a baseline mental status exam,, baseline insight into the situation, They are engaged in the discharge process, as well a s being friendly and amenable in behavioral control and havent been engaging in any observed concerning behavior or ideation recently. They decline voluntary extension/admission at this time and must be discharged in good norman, as Im unable to make a case for holding the patient against their will. They may have historical risk factors of admissions and other interactions with psychiatry however, those are not modifiable from a clinical perspective. The patient will need to be discharged in good norman. MENTAL STATUS EXAMINATION ON DISCHARGE: Appearance: Well groomed. Well nourished. Appears to be stated age. Speech: Spontaneous and Fluid. Normal volume. Normal rate. Thought Form: Linear and goal directed. Thought Content: No evidence of suicidal ideation. No evidence of aggressive or homicidal ideation. Unusual ideation from time to time, but it appears that the only thing she mentions is wondering about the information that was stolen from her computer and does not appear to be psychotic in nature. No thoughts of self harm. No evidence of delusions. Perception: No perceptual abnormalities noted. Judgement: Baseline. Insight: Baseline. PLAN/FOLLOWUP ARRANGEMENTS: Follow up appointments made (PCP and MH in 5 days of D/C date) and safety plan completed. Safety Planning aspects completed prior to discharge [RN reviewed crisis hotline information and other aspects to empower patient to access care in interim before next appointment.] The amount of time spent in the coordination of care for this patient was approximately 30 minutes. Medications Scheduled Buprenorphine HCl/Naloxone HCl (Suboxone 12 mg-3 mg Sl Film) 1 Each Film, 1 STRIP SL DAILY, (Reported) Prednisone (Prednisone) 20 Mg Tablet, 40 MG PO DAILY, #15 Scheduled PRN Acetaminophen (Acetaminophen) 500 Mg Tablet, 500 MG PO Q6H PRN for prn for 15 Days, #60 (Reported) Allergies Coded Allergies: No Known Allergies (Verified Allergy, Unknown, 04/18/19) MARIAMA SUMMERS DO May 16, 2020 20:49
== END 2020-03-05 14:00 | disposition home or self-care (01) | DRG 773 ==
LOC: M ED 22:02 → M PSY 03-01 04:00
PROVIDERS: ADMIT Psychiatry & Neurology Addiction Medicine; ATTEND Psychiatry & Neurology Addiction Medicine
DX: F19.159 Other psychoactive substance abuse with psychoactive substance-induced psychotic disorder, unspecified (principal); F33.8 Other recurrent depressive disorders; F11.99 Opioid use, unspecified with unspecified opioid-induced disorder; F15.19 Other stimulant abuse with unspecified stimulant-induced disorder

== ENCOUNTER 2020-04-15 23:39 | Emergency (ER) | payer MEDICAID ==
[~2020-04-15] VITALS: Ht 167.6 cm; Wt 59.2 kg
[2020-04-15 23:42] VITALS: BP 112/68
[2020-04-15] MEDS ORDERED: ACET-683 PO (23:58)
== END 2020-04-16 00:39 | disposition left against medical advice (07) ==
LOC: M ED 23:39
DX: Z53.21 Procedure and treatment not carried out due to patient leaving prior to being seen by health care provider (principal)

== ENCOUNTER 2020-05-12 04:07 | Emergency (ER) | payer MEDICAID, OTHER ==
[~2020-05-12] VITALS: Ht 167.6 cm; Wt 56.8 kg
[~2020-05-12 04:07] MED LIST changes: +ACET-683 PO
[2020-05-12] MEDS ORDERED: PRED20TA PO (05:41)
[2020-05-12 05:45] VITALS: BP 131/94
[2020-05-12] MEDS ORDERED: ALBUTEROL 90 MCG/ACT 8GM HFA INHALER INH ONE (05:45)
[2020-05-12] MEDS ORDERED: predniSONE 20 MG TAB PO ONE (05:45)
--- NOTE | 2020-05-12 05:55 | REPVR ---
PROCEDURE INFORMATION: Exam: XR Chest, 1 View Exam date and time: 05/12/2020 5:32 AM Age: 34 years old Clinical indication: Other: Cough TECHNIQUE: Imaging protocol: XR of the chest Views: 1 view. COMPARISON: AL Chest, 1 view 04/18/2019 5:01 PM FINDINGS: Lungs: Unremarkable. No consolidation. Pleural space: Unremarkable. No pleural effusion. No pneumothorax. Heart/Mediastinum: Unremarkable. No cardiomegaly. Bones/joints: Unremarkable. IMPRESSION: No acute findings. Electronically signed by: Yi Last On 05/12/2020 05:55:37 AM
--- NOTE | 2020-05-14 08:55 | ECGEPIP ---
[facility] - ED Test Date: 2020-05-12 Pat Name: MERCY AGUILA Department: Room: - Gender: Female Motion Picture Cameraman: SUKHDEEP : 1985 Requested By: WENDIE Choudhury Order Number: [id number] Reading MD: Tyesha Ruffin Measurements Intervals [place] Rate: 81 P: 2 MO: 114 QRS: 68 QRSD: 85 T: 47 QT: 367 QTc: 428 Interpretive Statements SINUS RHYTHM WITH SHORT MO INTERVAL SIMILAR 11/20/19 Electronically Signed on 05-14-2020 8:54:41 EDT by Tyesha Ruffin
== END 2020-05-12 06:09 | disposition home or self-care (01) ==
LOC: M ED 04:07
DX: J20.8 Acute bronchitis due to other specified organisms (principal); F29 Unspecified psychosis not due to a substance or known physiological condition; Z79.891 Long term (current) use of opiate analgesic; F17.210 Nicotine dependence, cigarettes, uncomplicated
CPT/HCPCS: 71045; 93005; 93041; 94640; 94760; 99285; U0003

== ENCOUNTER 2020-07-09 02:11 | Emergency (ER) | payer OTHER ==
[~2020-07-09] VITALS: Ht 167.6 cm; Wt 56.8 kg
[~2020-07-09 02:11] MED LIST changes: +PRED20TA PO
[2020-07-09] MEDS ORDERED: LORazepam 2 MG/ML VIAL As Ordered ONE (02:20)
[2020-07-09] MEDS: LORazepam 2 MG/ML VIAL IV PRN ×2 (02:26→02:49)
[2020-07-09] MEDS ORDERED: NS 1,000 ML IV ONE (07:45)
[2020-07-09 08:14] LABS: HEMATOCRIT 39.7 % (36.0-47.0); HEMOGLOBIN 13.3 g/dl (12.0-15.5); MEAN CORPUSCULAR HEMOGLOBIN 30.2 pg (27.0-33.0); MEAN CORPUSCULAR HGB CONC 33.5 g/dl (32.0-36.5); PLATELET COUNT, AUTOMATED 194 10^3/uL (150-450); RED BLOOD COUNT 4.41 10^6/uL (4.00-5.40); WHITE BLOOD COUNT 7.5 10^3/uL (4.0-10.0)
[2020-07-09 08:40] LABS: HCG, SERUM QUALITATIVE NEGATIVE (NEGATIVE)
[2020-07-09 08:47] LABS: AMPHETAMINES LEVEL URINE POSITIVE (NEGATIVE); BARBITURATES URINE NEGATIVE (NEGATIVE); BENZODIAZEPINES URINE NEGATIVE (NEGATIVE); CANNABINOIDS URINE NEGATIVE (NEGATIVE); COCAINE METABOLITE URINE NEGATIVE (NEGATIVE); METHADONE URINE NEGATIVE (NEGATIVE); OPIATES URINE NEGATIVE (NEGATIVE); PHENCYCLIDINE URINE NEGATIVE (NEGATIVE)
[2020-07-09 08:48] LABS: ACETAMINOPHEN LEVEL < 2.0 UG/ML (10.0-30.0); ALBUMIN 4.1 GM/DL (3.2-5.2); ALT/SGPT 19 U/L (12-78); BILIRUBIN,DIRECT 0.1 MG/DL (0.0-0.2); BILIRUBIN,TOTAL 0.4 MG/DL (0.2-1.0); BLOOD UREA NITROGEN 9 MG/DL (7-18); CALCIUM LEVEL 9.1 MG/DL (8.5-10.1); CARBON DIOXIDE LEVEL 23 MEQ/L (21-32); CHLORIDE LEVEL 109 MEQ/L (98-107); CREATININE FOR GFR 0.77 MG/DL (0.55-1.30); ETHYL ALCOHOL (ETHANOL) < 0.003 % (0.000-0.010); GLOMERULAR FILTRATION RATE > 60.0 (>60); GLUCOSE, FASTING 98 MG/DL (70-100); POTASSIUM SERUM 3.9 MEQ/L (3.5-5.1); SALICYLATE LEVEL 6.5 MG/DL (5.0-30.0); SODIUM LEVEL 139 MEQ/L (136-145); TOTAL PROTEIN 7.2 GM/DL (6.4-8.2)
[2020-07-09 12:18] VITALS: BP 115/75
== END 2020-07-09 12:35 | disposition home or self-care (01) ==
LOC: M ED 02:11
DX: F19.10 Other psychoactive substance abuse, uncomplicated (principal); Z79.899 Other long term (current) drug therapy
CPT/HCPCS: 36415; 80048; 80076; 80307; 84443; 84703; 85027; 96361; 96374; 99285; G0480; J2060

== ENCOUNTER → 2022-03-04 | Outpatient (CLI) | payer OTHER ==
[2022-03-04 15:17] LABS: BASO # 0.1 10^3/uL (0.0-0.2); EOS # 0.2 10^3/uL (0.0-0.5); EOS % 1.9 % (0.0-3.0); HEMATOCRIT 41.6 % (36.0-47.0); HEMOGLOBIN 14.1 g/dl (12.0-15.5); LYMPH # 2.2 10^3/uL (1.5-5.0); MEAN CORPUSCULAR HEMOGLOBIN 29.9 pg (27.0-33.0); MEAN CORPUSCULAR HGB CONC 33.9 g/dl (32.0-36.5); MEAN CORPUSCULAR VOLUME 88.1 fl (80.0-96.0); MONO # 0.5 10^3/uL (0.0-0.8); NEUTROPHILS # 5.4 10^3/uL (1.5-8.5); NEUTROPHILS % 64.7 % (36.0-66.0); PLATELET COUNT, AUTOMATED 225 10^3/uL (150-450); RED BLOOD COUNT 4.72 10^6/uL (4.00-5.40); WHITE BLOOD COUNT 8.3 10^3/uL (4.0-10.0)
[2022-03-04 16:24] LABS: ALBUMIN 4.2 GM/DL (3.2-5.2); ALT/SGPT 16 U/L (12-78); BILIRUBIN,TOTAL 0.5 MG/DL (0.2-1.0); BLOOD UREA NITROGEN 9 MG/DL (7-18); CALCIUM LEVEL 9.6 MG/DL (8.5-10.1); CARBON DIOXIDE LEVEL 28 MEQ/L (21-32); CHLORIDE LEVEL 107 MEQ/L (98-107); CHOLESTEROL LEVEL 153 MG/DL (<200); CHOLESTEROL RISK RATIO 4.026 (<5); CREATININE FOR GFR 0.73 MG/DL (0.55-1.30); GLOMERULAR FILTRATION RATE > 60.0 (>60); GLUCOSE, FASTING 80 MG/DL (70-100); HDL CHOLESTEROL 38 MG/DL (>40); LDL CHOLESTEROL 100 MG/DL (<100); NON-HDL-C 115 MG/DL; POTASSIUM SERUM 4.2 MEQ/L (3.5-5.1); SODIUM LEVEL 138 MEQ/L (136-145); TOTAL PROTEIN 8.2 GM/DL (6.4-8.2); TRIGLYCERIDES LEVEL 77 MG/DL (<150)
== END ==
LOC: M LAB 13:17
PROVIDERS: ATTEND Nurse Practitioner Family
DX: F20.9 Schizophrenia, unspecified (principal)

== ENCOUNTER 2025-06-18 21:07 | Inpatient (IN) | payer OTHER, SELFPAY ==
[~2025-06-18] VITALS: Ht 167.6 cm; Wt 55.9 kg
[~2025-06-18 21:07] MED LIST changes: +ONDA-282 PO; -ONDA4TAB6 PO
[2025-06-18 21:57] LABS: PLATELET COUNT, AUTOMATED 258 10^3/uL (150-450)
[2025-06-18 21:57] LABS: URINE PREG TEST NEGATIVE (NEGATIVE)
[2025-06-18 22:13] LABS: AMPHETAMINES LEVEL URINE NEGATIVE (NEGATIVE); BARBITURATES URINE NEGATIVE (NEGATIVE); BENZODIAZEPINES URINE NEGATIVE (NEGATIVE); CANNABINOIDS URINE NEGATIVE (NEGATIVE); METHADONE URINE NEGATIVE (NEGATIVE); OPIATES URINE NEGATIVE (NEGATIVE); PHENCYCLIDINE URINE NEGATIVE (NEGATIVE)
[2025-06-18 22:17] LABS: COCAINE METABOLITE URINE POSITIVE (NEGATIVE)
[2025-06-18] MEDS ORDERED: ARIP10TA63 PO (22:18)
[2025-06-18] MEDS ORDERED: HOME MED LIST COMPLETE! XX SCH (22:20)
[2025-06-18 22:28] LABS: ETHYL ALCOHOL (ETHANOL) 0.004 % (0.000-0.010)
[2025-06-18 22:30] LABS: ALT/SGPT 9 U/L (7.0-40); AST/SGOT 16 U/L (<34); CALCIUM LEVEL 9.3 MG/DL (8.5-10.1); CARBON DIOXIDE LEVEL 23 MMOL/L (20-31); CHLORIDE LEVEL 106 MMOL/L (98-107); CREATININE FOR GFR 0.64 MG/DL (0.55-1.30); GLOMERULAR FILTRATION RATE > 90.0 (>60); POTASSIUM SERUM 3.6 MMOL/L (3.5-5.1); SALICYLATE LEVEL < 3.0 MG/DL (<30); SODIUM LEVEL 138 MMOL/L (136-145)
[2025-06-18] MEDS ORDERED: traZODone 50 MG TAB PO PRN (22:50)
[2025-06-18] MEDS ORDERED: IBUPROFEN 400 MG TAB PO PRN (22:50)
[2025-06-18] MEDS ORDERED: ACETAMINOPHEN 325 MG TAB PO PRN (22:50)
[2025-06-18] MEDS ORDERED: MOM 30 ML SUSPENSION UDC PO PRN (22:50)
[2025-06-18] MEDS ORDERED: MAALOX 30 ML SUSP *UDC PO PRN (22:50)
[2025-06-19 00:24] VITALS: BP 98/62; TEMP 97.5; O2SAT 98
[2025-06-19] MEDS: NICOTINE 21 MG/24 HR 1 EA TRANSDERMAL TD SCH (13:13)
[2025-06-19 15:18] VITALS: BP 107/53; TEMP 97.7; O2SAT 98
[2025-06-20 06:12] VITALS: BP 105/57; TEMP 97.3; O2SAT 97
[2025-06-20 07:52] LABS: CHOLESTEROL LEVEL 118.0 MG/DL (<200); CHOLESTEROL RISK RATIO 3.01 (<5); LDL CHOLESTEROL 72.3 MG/DL (<100); NON-HDL-C 78.9 MG/DL; TRIGLYCERIDES LEVEL 33.0 MG/DL (<150)
[2025-06-20] MEDS: CALCIUM CARBONATE 500 MG CHEW U/D PO PRN (13:54)
[2025-06-20 15:44] VITALS: BP 108/61; TEMP 98.2; O2SAT 100
[2025-06-21 05:53] VITALS: BP 91/54; TEMP 98; O2SAT 100
[2025-06-21] MEDS: ARIPiprazole MONOHYDRATE 400 MG INJ (FREE PSY INPT ONLY) IM ONE (11:09)
[2025-06-21] MEDS ORDERED: ARIP10TA63 PO (11:46)
== END 2025-06-21 13:45 | disposition home or self-care (01) | DRG 750 ==
LOC: M ED 21:07 → M ED INP 22:46 → M PSY 06-19 00:26
PROVIDERS: ADMIT General Practice; ATTEND Psychiatry & Neurology Psychiatry
DX: F20.9 Schizophrenia, unspecified (principal); Z91.128 Patient's intentional underdosing of medication regimen for other reason; F14.10 Cocaine abuse, uncomplicated; F17.210 Nicotine dependence, cigarettes, uncomplicated; Z79.899 Other long term (current) drug therapy; Z65.2 Problems related to release from prison; T43.506A Underdosing of unspecified antipsychotics and neuroleptics, initial encounter